=== PATIENT | male | born 1940 | race Caucasian/White ===

== ENCOUNTER 2017-08-03 17:13 | Inpatient (IN) | payer OTHER, MEDICAID ==
[2017-08-03] MEDS ORDERED: PERMETHRIN 5% 60 GM CREAM TP ONE (17:22)
--- NOTE | 2017-08-03 18:00 | EDPHY ---
H & P - Medical/Surgical History Hx Asthma: No Hx Chronic Respiratory Disease: No Hx Diabetes: No Hx Cardiac Disease: Yes Hx Renal Disease: No Hx Cirrhosis: No Hx Alcoholism: No Hx HIV/AIDS: No Hx Splenectomy or Spleen Trauma: No Other PMH: AAA surgical repair, HTN, right SHoulder surgery, BOWEL RESCECTION, CHOLEcystectomy - Social History Smoking Status: Former smoker HPI/ROS: Chief complaint: Unable to care for self History of present illness: This is a 77-year-old male brought to the emergency department by EMS reporting he is unable to care for himself. He lives independently on the 3rd floor of a building. He has a history of chronic back pain. He states it has been worsening. He is unable to get around the apartment. Apparently he was able to get a note put on his front door stating he needed help and a bystander saw it and called 911. EMS reports his apartment is incredibly filthy with urine and feces throughout the apartment. Patient appears to be covered in bugs, on closer inspection they appear to be Thrips. He has seen his primary care doctor for this infection. Apparently he is on ivermectin. Review of systems: A 10 point review of systems was obtained and other than described above was negative (Ehsan Cortez) - Physical Exam Exam: General Appearance: Alert, appears uncomfortable. Eyes: Pupils equal and round no pallor or injection. ENT, Mouth: Mucous membranes moist. Respiratory: There are no retractions, lungs are clear to auscultation. Cardiovascular: Regular rate and rhythm. Gastrointestinal: Abdomen is soft and non tender, no masses, bowel sounds normal. Neurological: Alert and oriented x4. Strength and sensation intact and symmetric Skin: Multiple bites and crusting. Patient has a large number of bugs on him. Musculoskeletal: Neck is supple non tender. Extremities are symmetrical, full range of motion. Psychiatric: Patient is oriented X 3, there is no agitation. (Ehsan Cortez) Constitutional: Initial Vital Signs Heart Rate 86 08/03/17 18:00 Respiratory Rate 18 08/03/17 18:00 Blood Pressure 158/96 H 08/03/17 18:00 O2 Sat (%) 93 08/03/17 18:00 O2 Delivery Mode Room Air Allergies/Adverse Reactions: aspirin Allergy (Mild, Verified 07/17/15 17:16) Beta-Blockers (Beta-Adrenergic Bloc Allergy (Verified 07/13/15 17:30) Sulfa (Sulfonamide Antibiotics) Allergy (Verified 06/06/15 12:53) Home Medications: Medication Instructions Recorded Atorvastatin Calcium [Lipitor 20 20 mg PO DAILY 08/03/17 mg (*)] Diltiazem HCl [Diltiazem 24Hr ER] 180 mg PO DAILY 08/03/17 Ethacrynic Acid [Edecrin 25 MG (*)] 50 mg PO DAILY 08/03/17 Herbals/Supplements -Info Only 1 ea PO DAILY 08/03/17 Medical Decision Making - Diagnostics Imaging: I viewed and interpreted images myself - Diagnostics Imaging Results: Imaging Impressions Chest X-Ray 08/03/17 17:21 Impression: 1. Bibasilar interstitial opacities suggesting interstitial pulmonary edema. 2. Suspected small right pleural effusion. Lumbar Spine X-Ray 08/03/17 17:21 Impression: 1. Age-indeterminate, mild to moderate compression fracture at L4. 2. Moderate to severe anterior wedge deformity of L1, slightly increased since prior exam in 2013. ED Course/Re-evaluation: Patient is discussed with my secondary supervising physician Dr. Luis Daniel Mendenhall. Patient brought to the emergency department by EMS for back pain and inability to care for himself. Patient appears to be severely uncared for. He is covered in bugs. EMS reports severe filth in his apartment. He does not appear to be able to perform any ADLs. He will be admitted for pain management as well as case management. He is in agreement with plan. (Ehsan Cortez) Differential Diagnosis: Included but not limited to (Ehsan Cortez) - Data Points Laboratory Results: Laboratory Results 08/03/17 18:20 08/03/17 18:20 08/03/17 08/03/17 18:20 18:20 WBC 7.09 10^3/uL 10^3/uL (3.80-9.50) RBC 3.76 10^6/uL L 10^6/uL (4.40-6.38) Hgb 13.8 g/dL g/dL (13.7-17.5) Hct 39.8 % L % (40.0-51.0) MCV 105.9 fL H fL (81.5-99.8) MCH 36.7 pg H pg (27.9-34.1) MCHC 34.7 g/dL g/dL (32.4-36.7) RDW 13.0 % % (11.5-15.2) Plt Count 104 10^3/uL L 10^3/uL (150-400) MPV 9.5 fL fL (8.7-11.7) Neut % (Auto) 81.8 % H % (39.3-74.2) Lymph % (Auto) 8.3 % L % (15.0-45.0) Sherman % (Auto) 8.2 % % (4.5-13.0) Eos % (Auto) 0.3 % L % (0.6-7.6) Baso % (Auto) 0.6 % % (0.3-1.7) Nucleat RBC Rel Count 0.0 % % (0.0-0.2) Absolute Neuts (auto) 5.80 10^3/uL 10^3/uL (1.70-6.50) Absolute Lymphs (auto) 0.59 10^3/uL L 10^3/uL (1.00-3.00) Absolute Monos (auto) 0.58 10^3/uL 10^3/uL (0.30-0.80) Absolute Eos (auto) 0.02 10^3/uL L 10^3/uL (0.03-0.40) Absolute Basos (auto) 0.04 10^3/uL 10^3/uL (0.02-0.10) Absolute Nucleated RBC 0.00 10^3/uL 10^3/uL (0-0.01) Immature Gran % 0.8 % % (0.0-1.1) Immature Gran # 0.06 10^3/uL 10^3/uL (0.00-0.10) Sodium 138 mEq/L mEq/L (135-145) Potassium 4.5 mEq/L mEq/L (3.5-5.2) Chloride 102 mEq/L mEq/L (97-110) Carbon Dioxide 25 mEq/l mEq/l (22-31) Anion Gap 11 mEq/L mEq/L (8-16) BUN 13 mg/dL mg/dL (7-23) Creatinine 0.8 mg/dL mg/dL (0.7-1.3) Estimated GFR > 60 Glucose 183 mg/dL H mg/dL (70-100) Calcium 8.8 mg/dL mg/dL (8.5-10.4) Medications Given: Discontinued Medications Hydromorphone HCl (Dilaudid) 1 mg IVP EDNOW ONE Stop: 08/03/17 18:26 Last Admin: 08/03/17 18:27 Dose: 1 mg Permethrin (Elimite 5%) 1 christiana TP EDNOW ONE Stop: 08/03/17 17:23 Last Admin: 08/03/17 20:00 Dose: 1 unit Departure - Departure Disposition: [facility] Inpatient Acute Clinical Impression: Failure to thrive in adult Back pain Qualifiers: Back pain location: low back pain Chronicity: unspecified Back pain laterality : midline Sciatica presence: without sciatica Qualified Code(s): M54.5 - Low back pain Condition: Fair
[2017-08-03] MEDS ORDERED: HYDROmorphONE/DILAUDID 1 MG/ML INJ IVP ONE (18:25)
[2017-08-03 18:42] LABS: PLATELET COUNT 104 10^3/uL (150-400)
[2017-08-03] MEDS ORDERED: ONDANSETRON 4 MG/2 ML VIAL IVP PRN (18:46)
[2017-08-03] MEDS ORDERED: ONDANSETRON DISINTEGRATING 4 MG TAB PO PRN (18:46)
[2017-08-03] MEDS: ACETAMINOPHEN 325 MG TAB PO PRN (22:45)
[2017-08-03] MEDS ORDERED: LORazepam 2 MG/ML INJ IVP PRN (23:09)
[2017-08-03] MEDS: diphenhydrAMINE 25 MG CAP PO PRN (23:57)
[2017-08-03] MEDS: KETOROLAC 15 MG/1 ML SDV IVP SCH (23:58)
--- NOTE | 2017-08-04 00:26 | GHP ---
[f rep st] HISTORY AND PHYSICAL DATE OF ADMISSION: 08/03/2017 CHIEF COMPLAINT: Failure to thrive, lumbar back pain, and insect bites. HISTORY OF PRESENT ILLNESS: A 77-year-old male with history of aortic stenosis status post AVR, hypertension, CHF who came to the ER stating he cannot care for himself. He lives independently on the 3rd floor of a building and has had increased lumbar back pain. He has a history of pain, but says that it has gotten worse. He denies any radiation down the legs. No acute weakness or lower extremity numbness. No bladder or bowel incontinence. He was able to get a note to put on his front door stating he needed help and a bystander called 911. EMS reports his apartment is incredibly filthy with urine and feces throughout the apartment and he was covered in bugs. On closer examination, they appear to be thrips. Says he has fallen in the last few weeks and complaining of right wrist and arm pain. He has chronic right shoulder pain and this has not changed. Drinks up to a pint of vodka at night to sleep. Last drink was yesterday. No fevers, chills, or sweats. No nausea, vomiting, diarrhea. He said he found a used couch and brought it into his apartment about a month ago and then acutely developed bites that are extremely itchy all over his body. He is on ivermectin from his PCP. He has been out of his diltiazem and ethacrynic acid for the last couple days, but denies shortness of breath, lower extremity edema, PND. REVIEW OF SYSTEMS: I completed a 10-point Review of Systems, negative except as noted in the HPI. PAST SURGICAL HISTORY: 1. Aortic stenosis status post AVR at [facility] by Dr. Gale. 2. CHF. 3. Hypertension. 4. PVD. 5. History of AAA repair. 6. Alcohol abuse and withdrawal. PAST SURGICAL HISTORY: Humeral fracture status post repair May 2016, AAA repair necessitating a bowel resection, shoulder surgery, cholecystectomy. FAMILY HISTORY: Father with seizures. SOCIAL HISTORY: Lives alone in a 3rd floor apartment. Has not been able to care for himself for the last few weeks. Next, drinks at least a pint of vodka a day, last yesterday. Denies tobacco. Smokes weed daily. HOME MEDICATIONS: Diltiazem 180 mg daily, ethacrynic acid 50 daily, herbal supplement, Lipitor 20. ALLERGIES: Aspirin, beta blockers, and sulfas. PHYSICAL EXAMINATION: VITAL SIGNS: Temperature 36.8, blood pressure 182/97, heart rate is 99, respirations 20, 89% on room air. GENERAL: Cachectic male lying in bed uncomfortable, scratching all over his body. HEENT: PERRLA. Dry mucous membranes. CV: Regular rate and rhythm. No murmurs, gallops, or rubs. No lower extremity edema. LUNGS: Clear. GI: Soft, nontender, nondistended. Positive bowel sounds. : No Elizabeth. MUSCULOSKELETAL: Lumbar paraspinal tenderness. No appreciable pain over the spine itself. Negative straight leg test. Limited range of motion secondary to chronic pain in shoulder. Wrist and forearm are swollen and very tender with palpation, limited range of motion. NEURO: 2 through 12 intact. Normal sensation to touch. Positive tongue fasciculations and tremors. SKIN: Multiple excoriations all over chest and extremities with some scabbed lesions. No evidence of cellulitis or purulence. PSYCH: Alert and oriented x3. LABS: WBC 7, hemoglobin 13, hematocrit 39, MCV is 105, platelets 104. Sodium 138, potassium 4.5, chloride 102, carbon dioxide 25, creatinine 0.8, glucose is 183. Lumbar spine x-ray: Age indeterminate [id number] compression fracture L4. Moderate severe anterior wedge deformity L1 slightly increased from 2014. Chest x-ray is personally reviewed by me. Bibasilar distal opacities suggesting pulmonary edema. Small right effusion. ASSESSMENT AND PLAN: 1. Failure to thrive: Secondary to [id number] lumbar pain. There are no flag signs. There is age indeterminate lumbar fracture. Further evaluate with CT since has hardware and cannot obtain MRI. 2. Alcohol withdrawal. actively withdrawing now. Normally he drinks at least a pint of vodka a day. Start CIWA. Multivitamin, thiamine and folate. 3. Cachexia. Will check a pre-albumin. 4. Right wrist and arm pain. Check x-rays of wrist and forearm. 5. History of aortic stenosis status post aortic valve repair. 6. Peripheral vascular disease, statin. 7. Accelerated hypertension. Suspect this is due to alcohol withdrawal. We will treat this and also resume his home diltiazem. 8. History of heart failure. Continue diltiazem and ethacrynic acid. He has an allergy to beta blockers. 9. Bug infestation: per ER, was covered with thrips. Was treated for scabies with permethrin. Contact precautions. 10. Thrombocytopenia: Secondary to chronic alcohol use. 11. Macrocytosis. Again, secondary to alcohol. 12. Diet: Regular. 13. Deep venous thrombosis prophylaxis: Lovenox. DISPOSITION: Patient warrants inpatient admission given failure to thrive, [id number] back pain. Warrants further imaging, PT, OT, and possible placement. /[id number]/MODL MTDD
[2017-08-04] MEDS: KETOROLAC 15 MG/1 ML SDV IVP SCH ×4 (06:39→22:21)
[2017-08-04] MEDS ORDERED: Herbals/Supplements -Info Only PO SCH (09:00)
[2017-08-04] MEDS: PANTOPRAZOLE SODIUM 40 MG VIAL IVP SCH (09:01)
[2017-08-04] MEDS: DILTIAZEM CD 180 MG CAP PO SCH (09:01)
[2017-08-04] MEDS: ETHACRYNIC ACID 25 MG TAB PO SCH (09:01)
[2017-08-04] MEDS: FOLIC ACID 1 MG TAB PO SCH (09:02)
[2017-08-04] MEDS: ATORVASTATIN CALCIUM 20 MG TAB PO SCH (09:04)
[2017-08-04] MEDS: MULTIVITAMINS 1 EACH TAB PO SCH (09:04)
[2017-08-04] MEDS: oxyCODONE IR 5 MG TAB PO PRN (09:04)
[2017-08-04] MEDS: ENOXAPARIN 40 MG/0.4 ML SYR SC SCH (09:04)
[2017-08-04] MEDS: THIAMINE HCL 500 MG in NS 250 ML IV SCH (10:47)
[2017-08-04] MEDS: LORazepam 1 MG TAB PO PRN ×2 (10:56→22:23)
--- NOTE | 2017-08-04 14:07 | PDMN ---
Medical Necessity Medical necessity: est los>2mn for FTT, r/t acute on chronic lumbar pain, lumbar fx of indeterminate age, etoh withdrawal, R wrist and arm pain w/hx recent falls, bug infestation,and accelerated htn; admit for imaging, CIWA, BP management; and contact precautions; comorbid cachexia, chronic etoh abuse, PVD , CHF, and hx AVR; reported by EMS that apt. w/urine and feces throughout, and pt covered in bugs; per order and H&P 08/03/17
--- NOTE | 2017-08-04 16:33 | ASMTCMCOM ---
CM Note CM Note Notes: Patient admitted for failure to thrive and complaints of back pain. Per history and physical, ED report, and my conversation with patient, it appears that his living conditions are suboptimal. He lives independently in subsidized housing. He admits to "not cleaning as frequently as I should," but doesn't endorse reports that his apartment is covered in feces and urine. Regarding his drinking, he says that he does not drink socially, only drinks in his own home to help him sleep. He says it's very controlled drinking and without it, he's an insomniac. Finally, regarding bugs, he has been told he has thrips and lice. Per my research, thrips do not feed on humans although they can cause irritating bites. Patient said he brought in a sofa from the street, so I suspect this is how the thrips entered his house. I encouraged patient to speak with his manager property or contact at [facility] to have this investigated while he is not in the home, but he is concerned about people knowing. He's also concerned that his LP collection will need to be moved and he is the only one who knows how to arrange his records (not alphabetically). Patient may not have a great grasp on reality. Regarding his physical symptoms, he will be seen by Neurosurg and Ortho. PT/OT pending. Patient seemed amenable to rehab, although he is quite worried about treating the bug infestation in his house. I think this will be very hard to achieve without someone physically going into his home and determining exactly what the infestation is. Patient sees Dr Lyn at [facility] as well as Dr Mireles at [facility]. CM will follow for discharge planning. Date Signed: 08/04/2017 04:32 PM Electronically Signed By:Asia Yepez RN
--- NOTE | 2017-08-04 17:54 | GCON ---
[f rep st] CONSULTATION NEUROSURGICAL CONSULTATION CHIEF COMPLAINT: Back pain. HISTORY OF PRESENT ILLNESS: The patient is a 77-year-old male who has a history of aortic stenosis status post aortic valve replacement, hypertension, and congestive heart failure. He presented to the emergency department 2017, with back pain and failure to thrive. He was admitted by the hospitalist and a CT scan of the lumbar spine was obtained. This showed an L1 and possibly acute L4 compression fracture. Neurosurgical consultation was requested. He currently complains of ongoing axial left-sided low back pain. He denies any lower extremity radicular pain. He denies any weakness, paresthesias, ataxia, or bowel or bladder problems. He has apparently fallen several times over the last several weeks while at home. PAST MEDICAL HISTORY: 1. Aortic stenosis, status post aortic valve replacement. 2. Congestive heart failure. 3. Hypertension. 4. Peripheral vascular disease. 5. History of AAA repair. 6. History of alcohol abuse. PAST SURGICAL HISTORY: 1. Repair of humerus fracture in 2016. 2. AAA repair. 3. Shoulder surgery. 4. Cholecystectomy. MEDICATIONS: Prior to admission are Lipitor, diltiazem, coreg and herbal supplements. ALLERGIES: Aspirin, beta blockers. FAMILY HISTORY: Patient has a father with a history of seizures. SOCIAL HISTORY: Patient lives alone in a 3rd floor apartment. He does not have children. Does drink alcohol as well as use marijuana. REVIEW OF SYSTEMS: Negative. PHYSICAL EXAM: GENERAL: Patient is a 77-year-old male lying in bed, in no apparent distress. HEAD, EYES, EARS, NOSE, AND THROAT: Negative for drainage. EXTREMITIES: [place], warm and dry. NEUROLOGICAL: The patient is awake, alert , oriented x4. Pupils equal, round, reactive to light. Extraocular motions are intact. There is no evidence of facial droop. Tongue and uvula are midline. Spinal accessory muscles are intact. His motor strength is 5/5 in his arms and legs. Sensation is grossly intact to light touch. Deep tendon reflexes are 1/4. DIAGNOSTIC STUDIES: A CT scan of the lumbar spine without contrast demonstrates preservation of the sagittal alignment. There are postoperative changes from previous laminectomy. There appears to be an acute L4 compression fracture with approximately 30% to 40% loss of height. There appears to be a chronic L1 compression fracture with approximately 60% to 70% loss of height. There is no evidence of retropulsion or severe canal compromise. IMPRESSION: This is a 77-year-old male with acute low back pain that is likely related to his acute L4 compression fracture. He is neurologically stable. PLAN: All the above discussed in detail with the patient. This patient was seen and examined by Dr. Roy. At this point in time, will obtain an MRI of the lumbar spine without contrast to better evaluate this L4 compression fracture, to determine if it is acute. If this L4 fracture is acute, we will have him fit with a Wright brace from [employer]. In the meantime, we will have him work with Physical therapy and Occupational therapy. Please call with any neurological changes. /[id number]/MODL MTDD
--- NOTE | 2017-08-04 21:47 | HOSPPROG ---
Hospitalist Progress Note Assessment/Plan: Assessment: 77 yo M p/w acute L4 fracture and acute radial/ulnar fractures s/p mechanical fall Plan: # Radial / ulnar fractures. Acute, non-displaced distal metaphyseal and styloid chip fractures, 2/2 fall - d/w Dr. Velez, he recommends wrist brace and outpt f/u in 1 week to see if swelling dissipates and repeat x-rays show no significant displacement - PRN pain mgmt and icing, brace ordered # L4 compression fracture. Acute, new problem, further w/u indicated. Present on CT w/ 30-40% height loss - appreciate NSGY consult - getting MRI to confirm - davian brace by [employer] - PRN pain mgmt w/ bowel regimen # Back pain. Likely 2/2 L4 comp fxr, but possibly complicated by old L1 comp fxr w/ 60-70% height loss + suspected acute L. psoas muscle and iliacus hematomas, likely 2/2 traumatic fall - heat pad, pain mgmt - limiting safe mobility, PT/OT/CM, likely will require SNF # Louse infestation. Isolated from patient, ivermectin ordered to sterilize, cont on isolation precautions # Acute alcohol withdraw. Evidenced by tremulousness, elevated BP, last drink 48hrs ago - cont on CIWA # Chronic diastolic CHF. No e/o acute exacerbation, CXR w/ mild pulm edema ( personally interpreted), patient will only use his ethycrinic acid, cont to monitor weights # HTN. Chronic, cont home Rx Diet. Regular PPx. High risk, lovenox 40 Code. Full, he elects his [facility] to be his PCP at [facility]. ADD uncertain, ongoing w/u and evals per above, likely SNF. Subjective: ongoing pain in back, eating well Objective: Vital Signs Temp Pulse Resp BP Pulse Ox 36.7 C 80 16 164/91 H 91 L 08/04/17 19:48 08/04/17 19:48 08/04/17 19:48 08/04/17 19:48 08/04/17 19:48 Laboratory Results 08/04/17 08:31 08/04/17 08:31 08/03/17 08/04/17 08/05/17 05:59 05:59 05:59 Intake Total 730 1600 Output Total 450 1520 Balance 280 80 - Physical Exam Constitutional: no apparent distress, not in pain, chronically ill appearing, uncomfortable Cardiovascular: regular rate and rhythym, no murmur, rub, or gallop, edema ( trace bilat LE edema) Respiratory: reduced air movement (bilat bases), No expiratory wheeze, No inspiratory crackles, No bronchial breath sounds, No respiratory distress Gastrointestinal: normoactive bowel sounds, soft, non-tender abdomen, no palpable masses, No distension Skin: other (scattered bug bites across chest) Neurologic: AAOx3, sensation intact bilaterally, No asterixes (mild tremulousness) Psychiatric: interacting appropriately, not anxious, not encephalopathic, thought process linear ICD10 Worksheet Patient Problems: Problems Problem Status Onset Back pain Acute Failure to thrive in adult Acute Alcoholic intoxication Acute Alcoholism Acute Chronic Disease Mgmt/Transitional Care Acute Congestive heart failure Acute Dyspnea on exertion Acute Fracture dislocation of joint of right upper extremity Acute Humeral fracture Acute Hyponatremia Acute Nocturnal cough Acute Urinary retention Acute
[2017-08-04] MEDS: diphenhydrAMINE 25 MG CAP PO PRN (22:22)
[2017-08-04] MEDS: MELATONIN 3 MG TAB PO SCH (22:23)
[2017-08-05] MEDS: LORazepam 1 MG TAB PO PRN ×2 (01:52→22:32)
[2017-08-05] MEDS: diphenhydrAMINE 25 MG CAP PO PRN ×4 (03:09→22:32)
[2017-08-05] MEDS: KETOROLAC 15 MG/1 ML SDV IVP SCH ×3 (05:46→17:18)
[2017-08-05] MEDS: oxyCODONE IR 5 MG TAB PO PRN ×2 (05:57→22:32)
--- NOTE | 2017-08-05 06:59 | NEUSURGPN ---
Assessment/Plan: Assessment: 77 yo male that has a hx of CHF, failure to thrive that has had frequent falls with likely new compression fracture of L4 and old compression fracture of L1 Plan: -likely new L4 and old L1 compression fractures: pt with isolated lower back pain. No T or C spine pain -pt denies any UE or LE complaints or numbness, tingling, pain or weakness. He has isolated lower back pain -PT/OT ordered -MRI of the L spine ordered and pending due to the fact we don't know as of yet what type of heart valve he has -if L4 is acute we will order a Shon brace -warning signs reviewed -call with any questions or concerns -take medications as directed Subjective: Awake and alert. NAD. Eating/drinking and voiding. No f/c/n/v/d. Objective: AAO x 3, PERRLA/EOMI no droop CN 2-12 grossly intact +lt touch 5/5 BUE/BLE = Neuro Check Frequency: per routine Urinary Catheter in Place: No - Physician Discussed Patient with : Manuel[facility] Neurosurgery Physical Exam - Vitals, I&O, Labs I and O 08/04/17 08/05/17 08/06/17 05:59 05:59 05:59 Intake Total 730 2300 Output Total 450 1896 Balance 280 404 Weight 62.5 kg Intake: Oral (ml) 730 2300 Output: Urine (ml) 450 1896 Incontinence 1 Urinal 100 1895 Other: Number of Voids 1 Urinal 1 3 Vital Signs Temp Pulse Resp BP Pulse Ox 36.4 C 71 16 135/69 H 97 08/05/17 03:09 08/05/17 03:09 08/05/17 03:09 08/05/17 03:09 08/05/17 03:09 Laboratory Results 08/04/17 08:31 08/04/17 08:31 ICD10 Worksheet Patient Problems: Problems Problem Status Onset Back pain Acute Failure to thrive in adult Acute Alcoholic intoxication Acute Alcoholism Acute Chronic Disease Mgmt/Transitional Care Acute Congestive heart failure Acute Dyspnea on exertion Acute Fracture dislocation of joint of right upper extremity Acute Humeral fracture Acute Hyponatremia Acute Nocturnal cough Acute Urinary retention Acute
[2017-08-05] MEDS: THIAMINE HCL 500 MG in NS 250 ML IV SCH (09:29)
[2017-08-05] MEDS: PANTOPRAZOLE SODIUM 40 MG VIAL IVP SCH (09:30)
[2017-08-05] MEDS: ATORVASTATIN CALCIUM 20 MG TAB PO SCH (09:33)
[2017-08-05] MEDS: ETHACRYNIC ACID 25 MG TAB PO SCH (09:33)
[2017-08-05] MEDS: DILTIAZEM CD 180 MG CAP PO SCH (09:33)
[2017-08-05] MEDS: FOLIC ACID 1 MG TAB PO SCH (09:34)
[2017-08-05] MEDS: ENOXAPARIN 40 MG/0.4 ML SYR SC SCH (09:34)
[2017-08-05] MEDS: MULTIVITAMINS 1 EACH TAB PO SCH (09:34)
[2017-08-05] MEDS ORDERED: PERMETHRIN 1% 59 ML LOTION (Hair rinse) TP ONE (11:59)
--- NOTE | 2017-08-05 15:36 | ASMTCMCOM ---
CM Note CM Note Notes: Cm met w/ pt for dispo planning. Pt is refusing SNF at this time despite the concerns of staff and diagnose of failure to thrive. Pt reports that his biggest concern is the infestation. Pt reports that he has treated his apartment w/ chemicals but afraid to treat his apartment w/ heat. Pt reports that he is afraid that the heat will damage some of his property. Pt reports that he is afraid of notifying his landlord in fears of getting evicted. CM to follow. Plan: TBD; pending therapies Date Signed: 08/05/2017 03:35 PM Electronically Signed By:LEANNE Berger
--- NOTE | 2017-08-05 15:57 | HOSPPROG ---
Hospitalist Progress Note Assessment/Plan: Assessment: 77 yo M p/w acute L4 fracture and acute radial/ulnar fractures s/p mechanical fall Plan: # Radial / ulnar fractures. Acute, non-displaced distal metaphyseal and styloid chip fractures, 2/2 fall - d/w Dr. Velez, he recommends wrist brace and outpt f/u in 1 week to see if swelling dissipates and repeat x-rays show no significant displacement - PRN pain mgmt and icing, brace ordered # L4 compression fracture. Acute, new problem, further w/u indicated. Present on CT w/ 30-40% height loss - appreciate NSGY consult - getting MRI to confirm - davian brace by Hospitality Aide - PRN pain mgmt w/ bowel regimen # Back pain. Likely 2/2 L4 comp fxr, but possibly complicated by old L1 comp fxr w/ 60-70% height loss + suspected acute L. psoas muscle and iliacus hematomas, likely 2/2 traumatic fall - seems to have resolved but he has not ambulated yet # Louse infestation. Isolated from patient, ivermectin ordered to sterilize, cont on isolation precautions # Acute alcohol withdraw. Evidenced by tremulousness, elevated BP, last drink 48hrs ago - cont on CIWA * Looks pretty good today # Chronic diastolic CHF. No e/o acute exacerbation, CXR w/ mild pulm edema ( personally interpreted), patient will only use his ethycrinic acid, cont to monitor weights # HTN. Chronic, cont home Rx Diet. Regular PPx. High risk, lovenox 40 Code. Full, he elects his MDPOA to be his PCP at [facility]. ADD uncertain, ongoing w/u and evals per above, likely SNF. Subjective: Back pain is completely resolved Objective: Vital Signs Temp Pulse Resp BP Pulse Ox 35.9 C L 85 19 119/76 96 08/05/17 11:55 08/05/17 11:55 08/05/17 11:55 08/05/17 11:55 08/05/17 11:55 Laboratory Results 08/04/17 08:31 08/04/17 08:31 08/04/17 08/05/17 08/06/17 05:59 05:59 05:59 Intake Total 730 2300 Output Total 450 1896 125 Balance 280 404 -125 - Physical Exam Constitutional: no apparent distress, appears nourished, not in pain Eyes: anicteric sclera, EOMI Ears, Nose, Mouth, Throat: moist mucous membranes, hearing normal Cardiovascular: regular rate and rhythym Respiratory: no respiratory distress Skin: warm Neurologic: AAOx3 Psychiatric: interacting appropriately, not anxious, not encephalopathic, thought process linear ICD10 Worksheet Patient Problems: Problems Problem Status Onset Back pain Acute Failure to thrive in adult Acute Alcoholic intoxication Acute Alcoholism Acute Chronic Disease Mgmt/Transitional Care Acute Congestive heart failure Acute Dyspnea on exertion Acute Fracture dislocation of joint of right upper extremity Acute Humeral fracture Acute Hyponatremia Acute Nocturnal cough Acute Urinary retention Acute
[2017-08-05] MEDS: MELATONIN 3 MG TAB PO SCH (22:33)
[2017-08-06] MEDS: KETOROLAC 15 MG/1 ML SDV IVP SCH ×4 (00:31→17:59)
--- NOTE | 2017-08-06 06:51 | NEUSURGPN ---
Assessment/Plan: Assessment: 77 yo male that has a hx of CHF, failure to thrive that has had frequent falls with likely new compression fracture of L4 and old compression fracture of L1 Plan: -likely new L4 and old L1 compression fractures: pt with isolated lower back pain. No T or C spine pain -pt denies any UE or LE complaints or numbness, tingling, pain or weakness. He has isolated lower back pain -PT/OT ordered -MRI of the L spine shows mild acute L4 compression fracture -LSO brace form [employer] -upright xrays in brace and then if ok Pt can follow up with Dr Olea team in 4 weeks with xrays -pt understands and agrees -warning signs reviewed -call with any questions or concerns -take medications as directed Subjective: Awake and alert. NAD. Eating/drinking and voiding. No f/c/n/v/d. Objective: AAO x 3, PERRLA/EOMI no droop CN 2-12 grossly intact +lt touch 5/5 BUE/BLE = Neuro Check Frequency: per routine Urinary Catheter in Place: No - Physician Discussed Patient with : Manuela Neurosurgery Physical Exam - Vitals, I&O, Labs I and O 08/05/17 08/06/17 08/07/17 05:59 05:59 05:59 Intake Total 2300 820 Output Total 1896 625 Balance 404 195 Intake: Oral (ml) 2300 820 Output: Urine (ml) 1896 625 Incontinence 1 125 Urinal 1895 500 Other: Number of Voids Incontinence 1 Urinal 3 2 Vital Signs Temp Pulse Resp BP Pulse Ox 36.1 C 99 16 140/74 H 99 08/06/17 04:00 08/06/17 04:00 08/06/17 04:00 08/06/17 04:00 08/06/17 04:00 Laboratory Results 08/04/17 08:31 08/04/17 08:31 ICD10 Worksheet Patient Problems: Problems Problem Status Onset Back pain Acute Failure to thrive in adult Acute Alcoholic intoxication Acute Alcoholism Acute Chronic Disease Mgmt/Transitional Care Acute Congestive heart failure Acute Dyspnea on exertion Acute Fracture dislocation of joint of right upper extremity Acute Humeral fracture Acute Hyponatremia Acute Nocturnal cough Acute Urinary retention Acute
[2017-08-06] MEDS: DILTIAZEM CD 180 MG CAP PO SCH (09:36)
[2017-08-06] MEDS: ATORVASTATIN CALCIUM 20 MG TAB PO SCH (09:37)
[2017-08-06] MEDS: ETHACRYNIC ACID 25 MG TAB PO SCH (09:37)
[2017-08-06] MEDS: MULTIVITAMINS 1 EACH TAB PO SCH (09:38)
[2017-08-06] MEDS: oxyCODONE IR 5 MG TAB PO PRN (09:38)
[2017-08-06] MEDS: PANTOPRAZOLE SODIUM 40 MG VIAL IVP SCH (09:38)
[2017-08-06] MEDS: FOLIC ACID 1 MG TAB PO SCH (09:38)
[2017-08-06] MEDS: THIAMINE HCL 500 MG in NS 250 ML IV SCH (09:41)
[2017-08-06] MEDS: ENOXAPARIN 40 MG/0.4 ML SYR SC SCH (11:15)
[2017-08-06] MEDS ORDERED: PNEUMOC 13-VAL CONJ-DIP CRM/PF 0.5 ML SYR IM ONE (16:23)
[2017-08-06] MEDS: MELATONIN 3 MG TAB PO SCH (20:51)
[2017-08-06] MEDS: diphenhydrAMINE 25 MG CAP PO PRN (20:51)
--- NOTE | 2017-08-06 21:05 | HOSPPROG ---
Hospitalist Progress Note Assessment/Plan: Assessment: 77 yo M p/w acute L4 fracture and acute radial/ulnar fractures s/p mechanical fall Plan: # Radial / ulnar fractures. Acute, non-displaced distal metaphyseal and styloid chip fractures, 2/2 fall - d/w Dr. Velez, he recommends wrist brace and outpt f/u in 1 week to see if swelling dissipates and repeat x-rays show no significant displacement - PRN pain mgmt and icing, brace ordered # L4 compression fracture. Acute, new problem, further w/u indicated. Present on CT w/ 30-40% height loss - appreciate NSGY consult - davian brace by Automatic Corn Grinder Operator - PRN pain mgmt w/ bowel regimen # Back pain. Likely 2/2 L4 comp fxr, but possibly complicated by old L1 comp fxr w/ 60-70% height loss + suspected acute L. psoas muscle and iliacus hematomas, likely 2/2 traumatic fall - seems to have resolved but he has not ambulated yet # Louse infestation. Isolated from patient, ivermectin ordered to sterilize, cont on isolation precautions # Acute alcohol withdraw. Evidenced by tremulousness, elevated BP, last drink 48hrs ago - cont on CIWA * Looks pretty good today # Chronic diastolic CHF. No e/o acute exacerbation, CXR w/ mild pulm edema ( personally interpreted), patient will only use his ethycrinic acid, cont to monitor weights # HTN. Chronic, cont home Rx Diet. Regular PPx. High risk, lovenox 40 Code. Full, he elects his MDPOA to be his PCP at [facility]. ADD uncertain, ongoing w/u and evals per above, likely SNF. Subjective: pain conts to improve Objective: Vital Signs Temp Pulse Resp BP Pulse Ox 36.5 C 88 17 175/92 H 94 08/06/17 19:54 08/06/17 19:54 08/06/17 15:45 08/06/17 19:54 08/06/17 19:54 Laboratory Results 08/04/17 08:31 08/04/17 08:31 08/05/17 08/06/17 08/07/17 05:59 05:59 05:59 Intake Total 2300 820 1300 Output Total 1896 625 990 Balance 404 195 310 - Physical Exam Constitutional: no apparent distress, appears nourished, not in pain Cardiovascular: regular rate and rhythym Respiratory: no respiratory distress Neurologic: AAOx3 Psychiatric: interacting appropriately, not anxious, not encephalopathic, thought process linear ICD10 Worksheet Patient Problems: Problems Problem Status Onset Back pain Acute Failure to thrive in adult Acute Alcoholic intoxication Acute Alcoholism Acute Chronic Disease Mgmt/Transitional Care Acute Congestive heart failure Acute Dyspnea on exertion Acute Fracture dislocation of joint of right upper extremity Acute Humeral fracture Acute Hyponatremia Acute Nocturnal cough Acute Urinary retention Acute
[2017-08-07] MEDS: KETOROLAC 15 MG/1 ML SDV IVP SCH ×5 (00:11→23:44)
[2017-08-07] MEDS: LORazepam 1 MG TAB PO PRN ×2 (02:37→22:39)
--- NOTE | 2017-08-07 08:07 | NEUSURGPN ---
Assessment/Plan: Assessment: 77 yo male that has a hx of CHF, failure to thrive that has had frequent falls with likely new compression fracture of L4 and old compression fracture of L1 Plan: -likely new L4 and old L1 compression fractures: pt with isolated lower back pain. No T or C spine pain -pt denies any UE or LE complaints or numbness, tingling, pain or weakness. He has isolated lower back pain -PT/OT ordered -MRI of the L spine shows mild acute L4 compression fracture -LSO brace form [employer] -upright xrays in brace are stable - if he is tolerating the brace well he can follow up with Dr Roy in 4 weeks with xrays -If not tolerating brace can consider IR kyphoplasty -D/w Dr Roy -call with any questions or concerns Subjective: Pt resting at edge of bed states his back is killing him, not wearing brace Objective: Awake and alert NAD VSS MAEx4 Motor 5/5 BLE +LT Urinary Catheter in Place: No - Physician Discussed Patient with Dr.: Roy Neurosurgery Physical Exam - Vitals, I&O, Labs I and O 08/06/17 08/07/17 08/08/17 05:59 05:59 05:59 Intake Total 820 1640 Output Total 625 1090 Balance 195 550 Intake: Oral (ml) 820 1640 Output: Urine (ml) 625 1090 Incontinence 125 600 Urinal 500 490 Other: Number of Voids Incontinence 1 1 Urinal 2 Vital Signs Temp Pulse Resp BP Pulse Ox 36.7 C 89 19 151/78 H 91 L 08/07/17 07:33 08/07/17 07:33 08/07/17 07:33 08/07/17 07:33 08/07/17 07:33 Laboratory Results 08/04/17 08:31 08/04/17 08:31 ICD10 Worksheet Patient Problems: Problems Problem Status Onset Back pain Acute Failure to thrive in adult Acute Alcoholic intoxication Acute Alcoholism Acute Chronic Disease Mgmt/Transitional Care Acute Congestive heart failure Acute Dyspnea on exertion Acute Fracture dislocation of joint of right upper extremity Acute Humeral fracture Acute Hyponatremia Acute Nocturnal cough Acute Urinary retention Acute
[2017-08-07] MEDS: ETHACRYNIC ACID 25 MG TAB PO SCH (08:34)
[2017-08-07] MEDS: ATORVASTATIN CALCIUM 20 MG TAB PO SCH (08:34)
[2017-08-07] MEDS: oxyCODONE IR 5 MG TAB PO PRN (08:34)
[2017-08-07] MEDS: PANTOPRAZOLE SODIUM 40 MG VIAL IVP SCH (08:35)
[2017-08-07] MEDS: DILTIAZEM CD 180 MG CAP PO SCH (08:35)
[2017-08-07] MEDS: FOLIC ACID 1 MG TAB PO SCH (08:35)
[2017-08-07] MEDS: THIAMINE HCL 100 MG TAB PO SCH (08:35)
[2017-08-07] MEDS: MULTIVITAMINS 1 EACH TAB PO SCH (08:35)
[2017-08-07] MEDS: ENOXAPARIN 40 MG/0.4 ML SYR SC SCH (13:58)
--- NOTE | 2017-08-07 14:22 | HOSPPROG ---
Hospitalist Progress Note Assessment/Plan: Assessment: 77 yo M p/w acute L4 fracture and acute radial/ulnar fractures s/p mechanical fall Plan: # Radial / ulnar fractures. Acute, non-displaced distal metaphyseal and styloid chip fractures, 2/2 fall - d/w Dr. Velez, he recommends wrist brace and outpt f/u in 1 week to see if swelling dissipates and repeat x-rays show no significant displacement - PRN pain mgmt and icing, brace ordered # L4 compression fracture. Acute, new problem, further w/u indicated. Present on CT w/ 30-40% height loss - appreciate NSGY consult - davian brace by Supplier Diversity Director - PRN pain mgmt w/ bowel regimen # Back pain. Likely 2/2 L4 comp fxr, but possibly complicated by old L1 comp fxr w/ 60-70% height loss + suspected acute L. psoas muscle and iliacus hematomas, likely 2/2 traumatic fall - seems to have resolved but he has not ambulated yet # Louse infestation. Isolated from patient, ivermectin ordered to sterilize, cont on isolation precautions # Acute alcohol withdraw. Evidenced by tremulousness, elevated BP, last drink 48hrs ago - cont on CIWA * Looks pretty good today # Chronic diastolic CHF. No e/o acute exacerbation, CXR w/ mild pulm edema ( personally interpreted), patient will only use his ethycrinic acid, cont to monitor weights # HTN. Chronic, cont home Rx Diet. Regular PPx. High risk, lovenox 40 Code. Full, he elects his MDPOA to be his PCP at [facility]. needing snf Subjective: back pain is better Objective: Vital Signs Temp Pulse Resp BP Pulse Ox 36.6 C 75 18 158/94 H 95 08/07/17 12:42 08/07/17 12:42 08/07/17 12:42 08/07/17 12:42 08/07/17 12:42 Laboratory Results 08/04/17 08:31 08/04/17 08:31 08/06/17 08/07/17 08/08/17 05:59 05:59 05:59 Intake Total 820 1640 Output Total 625 1090 Balance 195 550 - Physical Exam Constitutional: no apparent distress, appears nourished, not in pain Eyes: anicteric sclera, EOMI Ears, Nose, Mouth, Throat: moist mucous membranes, hearing normal Cardiovascular: regular rate and rhythym Respiratory: no respiratory distress Gastrointestinal: normoactive bowel sounds, soft, non-tender abdomen, no palpable masses Skin: warm Neurologic: AAOx3 Psychiatric: interacting appropriately, not anxious, not encephalopathic, thought process linear ICD10 Worksheet Patient Problems: Problems Problem Status Onset Back pain Acute Failure to thrive in adult Acute Alcoholic intoxication Acute Alcoholism Acute Chronic Disease Mgmt/Transitional Care Acute Congestive heart failure Acute Dyspnea on exertion Acute Fracture dislocation of joint of right upper extremity Acute Humeral fracture Acute Hyponatremia Acute Nocturnal cough Acute Urinary retention Acute
--- NOTE | 2017-08-07 16:52 | ASMTCMCOM ---
CM Note CM Note Notes: After reviewing pt's chart today, a decision was made to make an APS report to Randal WALKER ([phone]) due to the condition of pt's apartment and the fact that he has an infestation of thrips. Officer Omi Min took the call. He will followup at pt's DC. If pt refuses SNF and DC's hime, he asked that they be called 30 mins after DC so that pt will be present when they arrive. If pt decides on SNF, CM will notify them. pt's DC plan remains unclear. CM to follow. Date Signed: 08/07/2017 04:51 PM Electronically Signed By:Indira Olivera LCSW
[2017-08-07] MEDS: MELATONIN 3 MG TAB PO SCH (22:39)
[2017-08-07] MEDS: diphenhydrAMINE 25 MG CAP PO PRN (22:39)
[2017-08-08] MEDS: KETOROLAC 15 MG/1 ML SDV IVP SCH ×3 (05:39→17:29)
[2017-08-08] MEDS: ENOXAPARIN 40 MG/0.4 ML SYR SC SCH (08:14)
[2017-08-08] MEDS: THIAMINE HCL 100 MG TAB PO SCH (08:14)
[2017-08-08] MEDS: ETHACRYNIC ACID 25 MG TAB PO SCH (08:14)
[2017-08-08] MEDS: FOLIC ACID 1 MG TAB PO SCH (08:14)
[2017-08-08] MEDS: MULTIVITAMINS 1 EACH TAB PO SCH (08:14)
[2017-08-08] MEDS: PANTOPRAZOLE SODIUM 40 MG VIAL IVP SCH (08:14)
[2017-08-08] MEDS: DILTIAZEM CD 180 MG CAP PO SCH (08:14)
[2017-08-08] MEDS: ATORVASTATIN CALCIUM 20 MG TAB PO SCH (08:14)
--- NOTE | 2017-08-08 10:41 | ASMTCMCOM ---
CM Note CM Note Notes: Met with pt this morning and he is agreeing to go to SNF. He chose [facility] where he has been before. Faxed referral and [facility]. can accept. DC unknown. Date Signed: 08/08/2017 10:41 AM Electronically Signed By:Indira Olivera LCSW
--- NOTE | 2017-08-08 18:59 | HOSPPROG ---
Hospitalist Progress Note Assessment/Plan: DIAGNOSES: # mechanical fall with multiple fracture injuries, ongoing severe gait instability multifactorial # Radial / ulnar fractures. Acute, non-displaced distal metaphyseal and styloid chip fractures, 2/2 fall - d/w Dr. Velez, he recommends wrist brace and outpt f/u in 1 week to see if swelling dissipates and repeat x-rays show no significant displacement - PRN pain mgmt and icing, brace ordered # L4 compression fracture. 30-40% height loss by CT - appreciate NSGY consult - davian brace by [employer]; can consider injection interventions if pain persists - PRN pain mgmt w/ bowel regimen # Back pain. Likely 2/2 L4 comp fxr, but possibly complicated by old L1 comp fxr w/ 60-70% height loss + suspected acute L. psoas muscle and iliacus hematomas, likely 2/2 traumatic fall - seems to be improving, but still with pain -beginning to ambulate a little bit better # Louse infestation. Isolated from patient, ivermectin ordered to sterilize -status post treatment off isolation now # Acute alcohol withdraw. Evidenced by tremulousness, elevated BP, last drink 48hrs ago -on CIWA -appears to have resolved completely this time but will continue to follow # Chronic diastolic CHF. No e/o acute exacerbation, CXR w/ mild pulm edema ( personally interpreted), patient will only use his ethycrinic acid, cont to monitor weights # HTN. Chronic, cont home Rx PLANS: -continue PT OT with increased activity as able -continue titration of pain management -continue thiamine replacement -continue nutritional supplements -will repeat serum chemistry tomorrow for ensuring stability -anticipate possibly discharging August 09 or ; has apparently been accepted by [facility] SUBJECTIVE: Still with moderate amount of pain that is actually starting to get up and move around a little bit better on his feet with a walker Eating better OBJECTIVE Vitals reviewed: Stable without fever Change Control Coordinator, my review: Exam: alert oriented skin warm dry color ok resps not labored lungs clear BSs heart regular abd soft nondistended nontender, bowel sounds present limbs warm, no edema iv site ok Objective: Vital Signs Temp Pulse Resp BP Pulse Ox 36.9 C 80 18 146/91 H 92 08/08/17 16:17 08/08/17 16:17 08/08/17 16:17 08/08/17 16:17 08/08/17 16:17 Laboratory Results 08/04/17 08:31 08/04/17 08:31 08/07/17 08/08/17 08/09/17 06:59 06:59 06:59 Intake Total 0009 182 3281 Output Total 1090 1708 150 Balance 550 -828 1050 ICD10 Worksheet Patient Problems: Problems Problem Status Onset Back pain Acute Failure to thrive in adult Acute Alcoholic intoxication Acute Alcoholism Acute Chronic Disease Mgmt/Transitional Care Acute Congestive heart failure Acute Dyspnea on exertion Acute Fracture dislocation of joint of right upper extremity Acute Humeral fracture Acute Hyponatremia Acute Nocturnal cough Acute Urinary retention Acute
[2017-08-08] MEDS: diphenhydrAMINE 25 MG CAP PO PRN (20:41)
[2017-08-08] MEDS: ACETAMINOPHEN 325 MG TAB PO PRN (20:41)
[2017-08-08] MEDS: MELATONIN 3 MG TAB PO SCH (20:41)
[2017-08-09] MEDS: KETOROLAC 15 MG/1 ML SDV IVP SCH (00:33)
[2017-08-09] MEDS: PANTOPRAZOLE SODIUM 40 MG VIAL IVP SCH (08:04)
[2017-08-09] MEDS: ENOXAPARIN 40 MG/0.4 ML SYR SC SCH (08:04)
[2017-08-09] MEDS: ATORVASTATIN CALCIUM 20 MG TAB PO SCH (08:05)
[2017-08-09] MEDS: FOLIC ACID 1 MG TAB PO SCH (08:05)
[2017-08-09] MEDS: DILTIAZEM CD 180 MG CAP PO SCH (08:05)
[2017-08-09] MEDS: ETHACRYNIC ACID 25 MG TAB PO SCH (08:05)
[2017-08-09] MEDS: THIAMINE HCL 100 MG TAB PO SCH (08:05)
[2017-08-09] MEDS: MULTIVITAMINS 1 EACH TAB PO SCH (08:06)
[2017-08-09] MEDS: oxyCODONE IR 5 MG TAB PO PRN ×2 (12:53→22:45)
[2017-08-09] MEDS: ACETAMINOPHEN 325 MG TAB PO PRN ×2 (13:55→22:47)
[2017-08-09] MEDS ORDERED: IBUPROFEN 200 MG TAB PO PRN (15:54)
[2017-08-09] MEDS ORDERED: traMADol 50 MG TAB PO PRN (15:55)
--- NOTE | 2017-08-09 17:59 | HOSPPROG ---
Hospitalist Progress Note Assessment/Plan: DIAGNOSES: # mechanical fall with multiple fracture injuries, ongoing severe gait instability multifactorial # Radial / ulnar fractures. Acute, non-displaced distal metaphyseal and styloid chip fractures, 2/2 fall - d/w Dr. Velez, he recommends wrist brace and outpt f/u in 1 week to see if swelling dissipates and repeat x-rays show no significant displacement - PRN pain mgmt and icing, brace ordered # L4 compression fracture. 30-40% height loss by CT - appreciate NSGY consult - davian brace by [employer]; can consider injection interventions if pain persists - PRN pain mgmt w/ bowel regimen # Back pain. Likely 2/2 L4 comp fxr, but possibly complicated by old L1 comp fxr w/ 60-70% height loss + suspected acute L. psoas muscle and iliacus hematomas, likely 2/2 traumatic fall - seems to be improving, but still with pain -beginning to ambulate a little bit better # Louse infestation. Isolated from patient, ivermectin ordered to sterilize -status post treatment off isolation now # uncontrolled hypertension, will need more medication at this time; a diuretic would be a good choice as he does have some diastolic heart failure chronically # Acute alcohol withdraw. Evidenced by tremulousness, elevated BP, last drink 48hrs ago -on CIWA -appears to have resolved completely this time but will continue to follow # Chronic diastolic CHF. No e/o acute exacerbation, CXR w/ mild pulm edema ( personally interpreted), patient will only use his ethycrinic acid, cont to monitor weights # HTN. Chronic, cont home Rx PLANS: -add Maxzide for blood pressure control -add tramadol and ibuprofen for his back pain -continue PT OT with increased activity as able -continue titration of pain management -continue thiamine replacement -continue nutritional supplements -will repeat serum chemistry tomorrow for ensuring stability -anticipate possibly discharging August 10, nursing facility unable to take him today; has apparently been accepted by [facility] SUBJECTIVE: Still with moderate amount of pain that is actually starting to get up and move around a little bit better on his feet with a walker, had a harder pain issue last night trying to sleep, no radicular symptoms No febrile symptoms Eating better OBJECTIVE Vitals reviewed: Having intermittent significant systolic hypertension, otherwise stable without fever Exam: alert oriented looks comfortable in relaxed, no confusion or disorientation or tremor, no anxiety skin warm dry color ok resps not labored lungs clear BSs heart regular abd soft nondistended nontender, bowel sounds present limbs warm, no edema iv site ok Objective: Vital Signs Temp Pulse Resp BP Pulse Ox 36.5 C 75 18 175/94 H 98 08/09/17 15:59 08/09/17 15:59 08/09/17 15:59 08/09/17 15:59 08/09/17 15:59 Laboratory Results 08/04/17 08:31 08/09/17 04:14 08/08/17 08/09/17 08/10/17 06:59 06:59 06:59 Intake Total 880 1600 Output Total 1708 450 Balance -828 1150 ICD10 Worksheet Patient Problems: Problems Problem Status Onset Back pain Acute Failure to thrive in adult Acute Alcoholic intoxication Acute Alcoholism Acute Chronic Disease Mgmt/Transitional Care Acute Congestive heart failure Acute Dyspnea on exertion Acute Fracture dislocation of joint of right upper extremity Acute Humeral fracture Acute Hyponatremia Acute Nocturnal cough Acute Urinary retention Acute
[2017-08-09] MEDS: MELATONIN 3 MG TAB PO SCH (19:59)
[2017-08-10] MEDS: oxyCODONE IR 5 MG TAB PO PRN ×2 (05:55→10:01)
[2017-08-10 07:23] VITALS: O2SAT 99
[2017-08-10] MEDS: THIAMINE HCL 100 MG TAB PO SCH (09:59)
[2017-08-10] MEDS: ETHACRYNIC ACID 25 MG TAB PO SCH (09:59)
[2017-08-10] MEDS: MULTIVITAMINS 1 EACH TAB PO SCH (10:00)
[2017-08-10] MEDS: DILTIAZEM CD 180 MG CAP PO SCH (10:00)
[2017-08-10] MEDS: FOLIC ACID 1 MG TAB PO SCH (10:01)
[2017-08-10] MEDS: ATORVASTATIN CALCIUM 20 MG TAB PO SCH (10:01)
[2017-08-10] MEDS: ACETAMINOPHEN 325 MG TAB PO PRN (10:04)
[2017-08-10] MEDS: PANTOPRAZOLE SODIUM 40 MG VIAL IVP SCH (10:06)
[2017-08-10] MEDS: ENOXAPARIN 40 MG/0.4 ML SYR SC SCH (12:59)
--- NOTE | 2017-08-10 14:15 | PDIAF ---
- Diagnosis Diagnosis: gait instability, lumbar compr fx, rad/uln fx, alcohol abuse, chronic afib Code Status: Full Code - Medication Management Discharge Medications: Medications to Continue on Transfer Atorvastatin Calcium [Lipitor 20 mg (*)] 20 mg PO DAILY 08/03/17 [Last Taken Unknown] Diltiazem HCl [Diltiazem 24Hr ER] 180 mg PO DAILY 08/03/17 [Last Taken Unknown] Ethacrynic Acid [Edecrin 25 MG (*)] 50 mg PO DAILY 08/03/17 [Last Taken 08/02/17 ] Acetaminophen [Tylenol 325mg (*)] 650 mg PO Q4HRS PRN tab 08/10/17 [Last Taken Unknown] Ibuprofen [Motrin (*)] 400 mg PO Q6HRS PRN tab 08/10/17 [Last Taken Unknown] Lidocaine 5% [Lidoderm 5% Patch (*)] 1 ea TD DAILY #1 patch 08/10/17 [Last Taken Unknown] Melatonin [Melatonin 3 MG (*)] 3 mg PO HS tab 08/10/17 [Last Taken Unknown] Multivitamins [Multivitamin (*)] 1 each PO DAILY tab 08/10/17 [Last Taken Unknown] Thiamine HCl [Vitamin B-1] 100 mg PO DAILY tab 08/10/17 [Last Taken Unknown] traMADol [Ultram 50 mg (*)] 50 mg PO Q6HRS PRN tab 08/10/17 [Last Taken Unknown ] Discharge Medications: Refer to the Discharge Home Medication list for PRN reason. - Orders Services needed: Registered Nurse, Certified Batting Machine Operator, Master Funds Transfer Clerk , Physical Therapy, Occupational Therapy Isolation Type: None Diet Recommendation: no restrictions on diet Diet Texture: Regular Texture Diet - Follow Up Care Current Providers and Referrals: Patient,NotPresent [Unknown] - As per Instructions David Roy MD [Medical Doctor] - (follow up with Dr Roy in 4 weeks with lumbar spine xrays) Shant Velez MD [Medical Doctor] -
[2017-08-10 15:06] VITALS: BP 162/89; PULSE 74; RESP 16; TEMP 97.6
--- NOTE | 2017-08-10 15:38 | ASMTLACE ---
NANCY Length of stay for Answers: 7-13 days current admission Acuity / Level of Answers: Yes Care: Did the patient have an inpatient admission? Comorbidities - select Answers: Congestive heart failure all that apply Opioid dependence / Chronic pain # of Emergency department Answers: 1-2 visits in the last 6 months Social determinants Answers: History of substance abuse (ETOH, street drugs, prescription drugs, etc.) Lack of community resources and/or lack of social support (no pcp, lives alone, transportation, sona d) Score: 22 Date Signed: 08/10/2017 03:37 PM Electronically Signed By:JESSIE Mcdermott
--- NOTE | 2017-08-10 15:53 | ASDISCHSUM ---
Discharge Information Plan Status:SNF Medically Cleared to Leave:08/09/2017 Discharge Date:08/09/2017 CM D/C Disposition:Prison Facility ADT D/C Disposition:Prison Facility Projected Discharge Date:08/10/2017 11:00 AM Transportation at D/C:Wheelchair Van Discharge Delay Reason: Follow-Up Date:08/10/2017 11:00 AM Discharge Slot: Final Diagnosis: Placement Information Referral Type:*Usp/SNF Referral ID:[id number] Provider Name:[facility] Address 1:[address] Address 2: City:[place] Selection Factors: State:[place] Patient Contact Information Contact Name:MELBA Relationship: Address: Home Phone: Work Phone: City: [facility] Phone: [facility] Code: Email: Financial Information Financial Class:Medicare Primary Plan Desc:MEDICARE INPATIENT Primary Plan Number:[id number] Secondary Plan Desc:MED[place] Secondary Plan Number:[id number] Assessment Information LACE LACE Length of stay for Answers: 7-13 days current admission Acuity / Level of Answers: Yes Care: Did the patient have an inpatient admission? Comorbidities - select Answers: Congestive heart failure all that apply Opioid dependence / Chronic pain # of Emergency department Answers: 1-2 visits in the last 6 months Social determinants Answers: History of substance abuse (ETOH, street drugs, prescription drugs, etc.) Lack of community resources and/or lack of social support (no pcp, lives alone, transportation, sona d) Score: 22 Date Signed: 08/10/2017 03:37 PM Electronically Signed By:JESSIE Mcdermott [facility] CM Progress Note CM Note CM Note Notes: Patient admitted for failure to thrive and complaints of back pain. Per history and physical, ED report, and my conversation with patient, it appears that his living conditions are suboptimal. He lives independently in subsidized housing. He admits to "not cleaning as frequently as I should," but doesn't endorse reports that his apartment is covered in feces and urine. Regarding his drinking, he says that he does not drink socially, only drinks in his own home to help him sleep. He says it's very controlled drinking and without it, he's an insomniac. Finally, regarding bugs, he has been told he has thrips and lice. Per my research, thrips do not feed on humans although they can cause irritating bites. Patient said he brought in a sofa from the street, so I suspect this is how the thrips entered his house. I encouraged patient to speak with his sporting goods sales manager or contact at [facility] to have this investigated while he is not in the home, but he is concerned about people knowing. He's also concerned that his LP collection will need to be moved and he is the only one who knows how to arrange his records (not alphabetically). Patient may not have a great grasp on reality. Regarding his physical symptoms, he will be seen by Neurosurg and Ortho. PT/OT pending. Patient seemed amenable to rehab, although he is quite worried about treating the bug infestation in his house. I think this will be very hard to achieve without someone physically going into his home and determining exactly what the infestation is. Patient sees Dr Lyn at [facility] as well as Dr Mireles at [facility]. CM will follow for discharge planning. Date Signed: 08/04/2017 04:32 PM Electronically Signed By:Asia Yepez RN [facility] Progress Note CM Note CM Note Notes: Cm met w/ pt for dispo planning. Pt is refusing SNF at this time despite the concerns of staff and diagnose of failure to thrive. Pt reports that his biggest concern is the infestation. Pt reports that he has treated his apartment w/ chemicals but afraid to treat his apartment w/ heat. Pt reports that he is afraid that the heat will damage some of his property. Pt reports that he is afraid of notifying his landlord in fears of getting evicted. CM to follow. Plan: TBD; pending therapies Date Signed: 08/05/2017 03:35 PM Electronically Signed By:LEANNE Berger [facility] Progress Note CM Note CM Note Notes: After reviewing pt's chart today, a decision was made to make an APS report to Randal WALKER ([phone]) due to the condition of pt's apartment and the fact that he has an infestation of thrips. Officer Omi Min took the call. He will followup at pt's DC. If pt refuses SNF and DC's hime, he asked that they be called 30 mins after DC so that pt will be present when they arrive. If pt decides on SNF, CM will notify them. pt's DC plan remains unclear. CM to follow. Date Signed: 08/07/2017 04:51 PM Electronically Signed By:Indira Olivera LCSW [facility] Progress Note CM Note CM Note Notes: Met with pt this morning and he is agreeing to go to SNF. He chose [facility] where he has been before. Faxed referral and [facility]. can accept. DC unknown. Date Signed: 08/08/2017 10:41 AM Electronically Signed By:Indira Olivera LCSW Case Management Discharge Plan Note Case Management Discharge Discharge Order Complete? Answers: Yes Patient to Obtain Answers: Other Notes: [facility] Medications Transportation Arranged Answers: Other Notes: Randal Valle w/c Transport will Pick (Date 08/10/2017 04:00 PM & Time) Faxed Final Orders Answers: Yes Discharge Comments Notes: Pt discharging to [facility] today. D/C orders/meds sent via [employer]. Transport arranged by . Pt's RN informing pt he cannot bring any of his belongings to to due concerns about his recent lice. A friend will be contacted to pick them up and keep them for pt. Date Signed: 08/10/2017 03:33 PM Electronically Signed By:JESSIE Mcdermott Intervention Information Intervention Type:*IM-Signed Date of Service:08/10/2017 02:32 PM Patient Type:Inpatient Staff Member:Candy Cheng Hours: Discipline: Severity: Comment:
--- NOTE | 2017-08-10 16:20 | PDDCSUM ---
Discharge Summary Discharge Summary: DISCHARGE DIAGNOSES: # mechanical fall with multiple fracture injuries, ongoing severe gait instability multifactorial # Radial / ulnar fractures. Acute, non-displaced distal metaphyseal and styloid chip fractures, 2/2 fall # L4 compression fracture. 30-40% height loss by CT # Back pain. # Louse infestation. Isolated from patient, status post treatment with ivermectin # uncontrolled hypertension, # Acute alcohol withdraw # Chronic diastolic CHF. No e/o acute exacerbation # HTN. Chronic, cont home Rx CONSULTANTS: Dr. Suzanne Velez PROCEDURES: CT scan of lumbar spine HOSPITAL COURSE SUMMARY: This elderly gentleman who lives by himself in a 3rd floor apartment came to the ER by ambulance as he was not really able to walk or get up the stairs to his apartment. He had had a fall and was identified in evaluating his back and arm pain that he had a compression fracture at L4 as well as radial ulnar fracture. Neither of these required any surgical correction and he was casted for his arm fracture. There is no evidence of any neurologic compromise or vascular compromise from either injury. Patient had severe gait instability was unable to ambulate. He does have a history of drinking alcohol significantly and had the beginnings of some mild alcohol withdrawal as he arrived here. Patient was admitted to the hospital where he was treated with fall risk precautions, physical therapy, IV fluids, supportive and nutritional care. He required a few small doses of benzodiazepine for his withdrawal but this resolved quickly and is completely resolved at this time. He has had no more falls here. His ambulation is actually improved significantly here but he is still having quite a bit of pain and finds standing walking still quite difficult. He has not felt safe for transfer directly back to home in his apartment independently. The patient did have hypertension while here and he does have chronic hypertension at home. He takes diltiazem at home. Despite use of the diltiazem here he had persistently elevated systolic pressures. As there is a history of diastolic congestive heart failure Maxzide was at this time as it antihypertensive in-home need ongoing follow-up for that. Incidentally the patient did complain of some itching and was found to have body lice here. He was treated with ivermectin here and responded well with that and his no visible infestation at this time PENDING TEST RESULTS: None MEDICATION CHANGES: Addition of [facility] side for blood pressure FOLLOW-UP PLAN: He is transferred at this time to [facility] will be cared for by the nursing and physician staff there He will have appointments to visit with Dr. Darrell Moser and Dr. Velez for his skeletal injuries Greater than 35 minutes bedside and care coordination time today
--- NOTE | 2017-08-11 10:12 | ASMTCMCOM ---
CM Note CM Note Notes: Call from Danielle Dickinson with [facility] APS, requesting information on patient's hospitalization. I gave her a summary of his stay here. Per CM notes from 08/10, he was discharged to [facility]. Danielle will f/u with patient there. APS has opened a case. Date Signed: 08/11/2017 10:11 AM Electronically Signed By:Asia Yepez RN
== END 2017-08-10 16:05 | DRG 552 ==
LOC: EDUNIT# → F1N 20:44
PROVIDERS: ADMIT Internal Medicine; ATTEND Internal Medicine
PROC: HZ2ZZZZ Detoxification Services for Substance Abuse Treatment (ICD-10-PCS; principal; 2017-08-03)
DX: S32.040A Wedge compression fracture of fourth lumbar vertebra, initial encounter for closed fracture (principal); S52.614A Nondisplaced fracture of right ulna styloid process, initial encounter for closed fracture; S59.201A Unspecified physeal fracture of lower end of radius, right arm, initial encounter for closed fracture; W01.0XXA Fall on same level from slipping, tripping and stumbling without subsequent striking against object, initial encounter; Y92.039 Unspecified place in apartment as the place of occurrence of the external cause; Y99.8 Other external cause status; I11.0 Hypertensive heart disease with heart failure; I50.22 Chronic systolic (congestive) heart failure; B85.1 Pediculosis due to Pediculus humanus corporis; F10.230 Alcohol dependence with withdrawal, uncomplicated; D69.59 Other secondary thrombocytopenia; K11.8 Other diseases of salivary glands; Z95.4 Presence of other heart-valve replacement; Z23 Encounter for immunization
CPT/HCPCS: 84134-90; 96374; 97116-GP; 97161-GP; 97166-GO; 97530-GP; 97535-GO; G0009; G8978-GP-CK; G8979-GP-CJ; G8987-GO-CJ; G8988-GO-CI; J1170; J1650; J1885; J2060; J3411

== ENCOUNTER 2017-08-13 07:32 | Emergency (ER) | payer OTHER, MEDICAID ==
--- NOTE | 2017-08-13 07:39 | EDPHY ---
H & P Time Seen by Provider: 08/13/17 07:35 HPI/ROS: CHIEF COMPLAINT: Atraumatic left hip pain HISTORY OF PRESENT ILLNESS: The patient is brought to the emergency department by paramedics with atraumatic left hip pain. The patient recently was hospitalized at [facility] with failure to thrive, alcohol intoxication, multiple nonsurgical fractures from a mechanical fall and scabies. The patient was discharged to [facility] 2 days ago. The patient was brought to the emergency department today by paramedics after he awoke this morning complaining of left hip pain. The patient reports that he has been recovering uneventfully at [facility]. He reports that he was moving in bed this morning when he developed acute left hip pain. He denies any history of a direct fall or recent traumatic injury. The patient denies any acute numbness or weakness. The patient denies any complaints of acute headache, neck pain or acute back pain. He does endorse symptoms of chronic pain from his prior fractures. He denies any fever, cough or congestion. He reports his pain is moderate in nature. REVIEW OF SYSTEMS: A comprehensive 10 point review of systems is otherwise negative aside from elements mentioned in the history of present illness. Source: Patient Exam Limitations: No limitations - Medical/Surgical History Hx Asthma: No Hx Chronic Respiratory Disease: No Hx Diabetes: No Hx Cardiac Disease: Yes Hx Renal Disease: No Hx Cirrhosis: No Hx Alcoholism: No Hx HIV/AIDS: No Hx Splenectomy or Spleen Trauma: No Other PMH: AAA surgical repair, HTN, right SHoulder surgery, BOWEL RESCECTION, CHOLEcystectomy, rheumatic fever - Social History Smoking Status: Former smoker - Physical Exam Exam: General Appearance: Elderly male, no acute distress Eyes: Pupils equal and round no pallor or injection ENT, Mouth: Mucous membranes moist Respiratory: There are no retractions, lungs are clear to auscultation Cardiovascular: Regular rate and rhythm Gastrointestinal: Abdomen is soft and nontender, no masses, bowel sounds normal Neurological: Alert and oriented x4, 5/5 strength all 4 extremities Skin: Some areas of hyperkeratosis otherwise no evidence of acute ecchymoses or traumatic injury Musculoskeletal: Tenderness to palpation in the lower lumbar spine Extremities: Tenderness to palpation over the left greater trochanter, painful range of motion left hip, no obvious shortening of the left lower extremity appreciated on exam. Remainder of extremity examination is unremarkable Constitutional: Initial Vital Signs Temperature (C) 36.7 C 08/13/17 07:35 Heart Rate 74 08/13/17 07:35 Respiratory Rate 16 08/13/17 07:35 Blood Pressure 140/70 H 08/13/17 07:35 O2 Sat (%) 88 L 08/13/17 07:35 O2 Delivery Mode Room Air Allergies/Adverse Reactions: aspirin Allergy (Mild, Verified 08/13/17 07:44) Beta-Blockers (Beta-Adrenergic Bloc Allergy (Verified 08/13/17 07:44) Sulfa (Sulfonamide Antibiotics) Allergy (Verified 08/13/17 07:44) Home Medications: Medication Instructions Recorded Atorvastatin Calcium [Lipitor 20 20 mg PO DAILY 08/03/17 mg (*)] Diltiazem HCl [Diltiazem 24Hr ER] 180 mg PO DAILY 08/03/17 Ethacrynic Acid [Edecrin 25 MG (*)] 50 mg PO DAILY 08/03/17 Acetaminophen [Tylenol 325mg (*)] 650 mg PO Q4HRS PRN tab 08/10/17 Ibuprofen [Motrin (*)] 400 mg PO Q6HRS PRN tab 08/10/17 Lidocaine 5% [Lidoderm 5% Patch 1 ea TD DAILY #1 patch 08/10/17 (*)] Melatonin [Melatonin 3 MG (*)] 3 mg PO HS tab 08/10/17 Multivitamins [Multivitamin (*)] 1 each PO DAILY tab 08/10/17 Thiamine HCl [Vitamin B-1] 100 mg PO DAILY tab 08/10/17 traMADol [Ultram 50 mg (*)] 50 mg PO Q6HRS PRN tab 08/10/17 Medical Decision Making - Diagnostics Imaging Results: Imaging Impressions Hip X-Ray 08/13/17 07:37 Impression: Left hip negative for acute abnormality. See above report for additional findings. ED Course/Re-evaluation: The patient presents to the ED after he developed an episode of acute left hip pain which was atraumatic in nature. The patient was noted to have some muscular tenderness upon arrival. He was taken for an x-ray which demonstrates no evidence of a fracture dislocation. I re-evaluated the patient at 8:40 a.m.. His pain has improved spontaneously. At this point time I favor muscle spasm is a likely etiology. I reviewed the patient's past workup from his recent hospitalization. At this point time I do not feel that additional imaging studies are blood testing are indicated. The patient will be discharged back to his intermediate. Differential Diagnosis: Differential diagnosis considered includes muscle spasm, hip fracture, dislocation Departure - Departure Disposition: Home, Routine, Self-Care Clinical Impression: Muscle spasm Condition: Good Instructions: Muscle Spasm (ED) Additional Instructions: 1. Please talk with your regular physician about the addition of medications for possible muscle spasms. 2. Return to the emergency department for severe pain or other concerns.
[2017-08-13 07:52] VITALS: RESP 16; TEMP 98.1
[2017-08-13 09:57] VITALS: BP 143/75; PULSE 79; O2SAT 95
--- NOTE | 2017-08-13 10:04 | ASMTCMCOM ---
CM Note CM Note Notes: Medicaid authorization received per KATHY for return to [facility]; [id number]. [facility] called for transport Date Signed: 08/13/2017 10:04 AM Electronically Signed By:Jessica Restrepo RN
== END 2017-08-13 09:45 | disposition home or self-care (01) ==
LOC: EDUNIT#
DX: M62.838 Other muscle spasm (principal); I10 Essential (primary) hypertension; Z87.891 Personal history of nicotine dependence

== ENCOUNTER 2017-10-12 03:12 | Inpatient (IN) | payer OTHER, MEDICAID ==
[2017-10-12] MEDS ORDERED: NS 1,000 ML IV ONE (03:23)
--- NOTE | 2017-10-12 03:30 | EDPHY ---
H & P Time Seen by Provider: 10/12/17 03:26 HPI/ROS: HPI CHIEF COMPLAINT: Generalized weakness, back pain, unable to care for himself HISTORY OF PRESENT ILLNESS: This patient is 77-year-old male, presents emergency room by EMS after states he called to his door way was unable to open up his doors he did not have enough strength, he was screaming to alert his neighbor. Neighbor found him on the ground. Patient states that he crawled out of his bed however did not have enough strength to stand. He states that he had some ongoing low back pain. He is unable to stand. He denies recurrent fall but he does report to me that he drinks alcohol regularly. Rather large amount each night to go to sleep. EMS reports that he had deplorable conditions at home, the home was not level, strong smell of feces and urine, and empty liquor bottles throughout. They did find his bed to be flush with the ground. Past Medical History: Aortic stenosis, diastolic heart failure, gait instability uncontrolled hypertension, L4 compression fracture, CHF, daily alcohol use Past Surgical History: No recent surgery Social History: Lives alone apartment. Daily alcohol use. Drinks hard liquor. Family History: Noncontributory ROS REVIEW OF SYSTEMS: A comprehensive 10 point review of systems is otherwise negative aside from elements mentioned in the history of present illness. Exam Constitutional Deconditioned, foul urine smell, thin and frail, smells of etoh, triage nursing summary reviewed, vital signs reviewed, awake/alert. Eyes normal conjunctivae and sclera, EOMI, PERRLA. HENT normal inspection, atraumatic, dry mucus membranes, no epistaxis, neck supple/ no meningismus, no raccoon eyes. Respiratory clear to auscultation bilaterally, normal breath sounds, no respiratory distress, no wheezing. Cardiovascular rate normal, regular rhythm, no murmur, no edema, distal pulses normal. Gastrointestinal soft, non-tender, no rebound, no guarding, normal bowel sounds, no distension, no pulsatile mass. Genitourinary no CVA tenderness. Musculoskeletal I can't palpate any significant midline pain, no midline vertebral tenderness, full range of motion, no calf swelling, no tenderness of extremities, no meningismus, good pulses, neurovascularly intact. Skin pink, warm, & dry, no rash, skin atraumatic. Neurologic awake, alert and oriented x 3, AAOx3, moves all 4 extremities equally, motor intact, sensory intact, CN II-XII intact, normal cerebellar, normal vision, normal speech. Psychiatric normal mood/affect. Heme/Lymph/Immune no lymphadenopathy. Differential Diagnosis: Includes but is not limited to in a particular order dehydration, generalized weakness, failure to thrive, grave disability, alcoholism, daily alcohol use, compression fracture, recurrent falls Medical Decision Making: Plan for this patient will obtain blood work, gentle IV hydration, x-ray lumbar spine x-ray of the chest, re-evaluate. Low threshold to admit due to patient's current social situation living alone unable to care form self. Re-evaluation: X-ray reviewed cardiomegaly present. Pulmonary edema present. Bilateral pleural effusions worse on the right than left, he is in his left lower lung field. EKG interpretation by me on record in [facility] system. Impression time of EKG 4:43 a.m., sinus rhythm is 73 no acute ischemic change. CT angiogram negative for PE. Interstitial lung disease present Source: Patient, EMS - Medical/Surgical History Hx Asthma: No Hx Chronic Respiratory Disease: No Hx Diabetes: No Hx Cardiac Disease: Yes Hx Renal Disease: No Hx Cirrhosis: No Hx Alcoholism: No Hx HIV/AIDS: No Hx Splenectomy or Spleen Trauma: No Other PMH: AAA surgical repair, HTN, right SHoulder surgery, BOWEL RESCECTION, CHOLEcystectomy, rheumatic fever - Social History Smoking Status: Former smoker Constitutional: Initial Vital Signs Temperature (C) 36.9 C 10/12/17 03:54 Heart Rate 76 10/12/17 03:54 Respiratory Rate 20 10/12/17 03:54 Blood Pressure 183/113 H 10/12/17 03:54 O2 Sat (%) 92 10/12/17 03:54 O2 Delivery Mode Nasal Cannula O2 (L/minute) 2 Allergies/Adverse Reactions: aspirin Allergy (Mild, Verified 10/12/17 03:54) Beta-Blockers (Beta-Adrenergic Bloc Allergy (Verified 10/12/17 03:54) Sulfa (Sulfonamide Antibiotics) Allergy (Verified 10/12/17 03:54) Home Medications: Medication Instructions Recorded Atorvastatin Calcium [Lipitor 20 20 mg PO DAILY 08/03/17 mg (*)] Diltiazem HCl [Diltiazem 24Hr ER] 180 mg PO DAILY 08/03/17 Ethacrynic Acid [Edecrin 25 MG (*)] 50 mg PO DAILY 08/03/17 Melatonin [Melatonin 3 MG (*)] 3 mg PO HS tab 08/10/17 Multivitamins [Multivitamin (*)] 1 each PO DAILY tab 08/10/17 Thiamine HCl [Vitamin B-1] 100 mg PO DAILY tab 08/10/17 Calcium Carbonate [Oyster Shell 500 mg PO DAILY 10/12/17 Calcium 500 mg (*)] Medical Decision Making - Data Points Laboratory Results: Laboratory Results 10/12/17 04:05 10/12/17 04:05 Medications Given: Ciprofloxacin (Ciloxan Opht Drops) 2 drops EACHEYE Q4HRS JACKY Stop: 11/11/17 13:59 Last Admin: 10/13/17 02:43 Dose: Not Given Diltiazem HCl (Cardizem Er Q24hr) 180 mg PO DAILY JACKY Stop: 04/10/18 12:59 Last Admin: 10/12/17 13:49 Dose: 180 mg Folic Acid (Folic Acid) 1 mg PO DAILY JACKY Stop: 04/10/18 08:59 Last Admin: 10/12/17 05:24 Dose: 1 mg Sodium Chloride (Ns) 1,000 mls @ 100 mls/hr IV CONT JACKY Stop: 04/10/18 06:29 Last Admin: 10/12/17 23:22 Dose: 1,000 mls Lorazepam (Ativan Injection) 1 - 2 mg IVP Q1H PRN; Protocol PRN Reason: Alcohol Withdrawal w/IV access Stop: 04/10/18 13:23 Last Admin: 10/13/17 02:54 Dose: 2 mg Melatonin (Melatonin) 3 mg PO HS JACKY Stop: 04/10/18 20:59 Last Admin: 10/12/17 19:47 Dose: 3 mg Discontinued Medications Furosemide (Lasix Injection) 20 mg IVP ONCE ONE Stop: 10/12/17 12:52 Last Admin: 10/12/17 13:54 Dose: 20 mg Sodium Chloride (Ns) 1,000 mls @ 0 mls/hr IV EDNOW ONE; Wide Open PRN Reason: Protocol Stop: 10/12/17 03:24 Last Admin: 10/12/17 04:05 Dose: 200 mls Thiamine HCl 500 mg/ Sodium (Chloride) 105 mls @ 210 mls/hr IV ONCE ONE Stop: 10/12/17 05:19 Last Admin: 10/12/17 05:24 Dose: 105 mls Departure - Departure Disposition: [facility] Acute Clinical Impression: Generalized weakness, Dehydration, Hypoglycemia Alcohol intoxication Qualifiers: Complication of substance-induced condition: uncomplicated Qualified Code(s): F10.920 - Alcohol use, unspecified with intoxication, uncomplicated Condition: Fair
[2017-10-12 04:17] LABS: PLATELET COUNT 48 10^3/uL (150-400)
[2017-10-12 04:22] LABS: INR 0.99 (0.83-1.16); PROTIME(PATIENT) 13.3 SEC (12.0-15.0)
[2017-10-12 04:26] LABS: CREATINE KINASE 88 IU/L (0-224)
[2017-10-12] MEDS ORDERED: THIAMINE HCL 500 MG in NS 100 ML IV ONE (04:50)
[2017-10-12] MEDS ORDERED: FOLIC ACID 1 MG TAB ONE (05:18)
[2017-10-12] MEDS: FOLIC ACID 1 MG TAB PO SCH (05:24)
--- NOTE | 2017-10-12 06:23 | CPEKG ---
Heart Rate: 73 RR Interval: 822 P-R Interval: 148 QRSD Interval: 96 QT Interval: 432 QTC Interval: 476 P Capron: 34 QRS Capron: -11 T Wave Capron: -1 EKG Severity - BORDERLINE ECG - EKG Impression: SINUS RHYTHM EKG Impression: BORDERLINE PROLONGED QT INTERVAL Electronically Signed By: Bro Stewart 12-Oct-2017 07:18:38
[2017-10-12] MEDS ORDERED: ONDANSETRON 4 MG/2 ML VIAL IVP PRN (06:27)
[2017-10-12] MEDS ORDERED: IOPAMIDOL (ISOVUE 370) 100 ML BTL IV ONE (06:40)
[2017-10-12] MEDS: NS 1,000 ML IV SCH ×2 (08:00→23:22)
--- NOTE | 2017-10-12 08:33 | GHP ---
[f rep st] HISTORY AND PHYSICAL DATE OF ADMISSION: 10/12/2017 SOURCE: Patient provides history, is a fair historian. He keeps asking regarding something to drink but redirectable. Case discussed with ED provider and EMR reviewed including visit from July 2017. CHIEF COMPLAINT: Generalized weakness. HISTORY OF PRESENT ILLNESS: This is a 77-year-old gentleman with past medical history significant fo r alcohol dependence, diastolic CHF, history of aortic stenosis, status post AVR, recent hospital sta y for back pain due to L4 compression fracture, failure to thrive, generalized weakness, an d peripheral vascular disease who presents to the emergency department today with complaints of gener alized weakness. Apparently, patient was unable to ambulate. He tried to crawl to the front door, b ut was unable to open it secondary to being unable to sit up or stand up. He was yelling for help an d his neighbor called . EMS arrived to find the patient on the floor, disheveled, in his own fe tyler and the home was in quite a disarray and in poor shape. Patient is complaining of feeling thirst y. He denies any chest pain, palpitations, shortness of breath, cough, rhinorrhea, fevers, chills, n ausea, or vomiting. He is also denying any acute back pain at time of my interview, but he is distra cted by request for drinking and feeling dehydrated. In July, patient was brought into the hospital under similar conditions except he had complaints of back pain. He was also found to be quite cachectic with debility and was discharged to [facility] . I am not sure if patient was discharged or he left AMA. At this point will need to gather further information. REVIEW OF SYSTEMS: Negative, except as noted above per HPI. ALLERGIES: Aspirin, beta gloria, sulfa. HOME MEDICATIONS: As per EMR, tramadol, thiamine, multivitamin, melatonin, Lidoderm patch, ibuprofen , , diltiazem, atorvastatin, Tylenol p.r.n. See EMR for dosing. Med list is not yet recon ciled. PAST MEDICAL HISTORY: Significant for aortic stenosis,status post AVR, diastolic CHF, PVD, alcohol d ependence, benign essential hypertension with history of accelerated hypertension, L4 compr ession fracture in July 2017, gait instability, history of falls, generalized weakness, rheumatic fever, and underweight status. PAST SURGICAL HISTORY: Significant for AVR, AAA repair, shoulder, bowel resection, cholecystectomy. FAMILY HISTORY: Father with history of seizures. SOCIAL HISTORY: Patient lives alone in an apartment. He drinks alcohol daily, last listed as 1 pint of vodka daily minimum. Denies tobacco and uses marijuana. COR STATUS: Will be full at this time given that it is difficult to obtain any history, redirect the patient, as he is complaining of feeling thirsty. PHYSICAL EXAMINATION: VITAL SIGNS: Upon arrival to the emergency department, blood pressure 183/113 , heart rate 76, respiratory rate 20, O2 saturation 92% on room air, temperature 36.9. Current vital s available: Blood pressure 170/101, heart rate is 85, respiratory rate 20, O2 saturation 97% on 2 L by nasal cannula. GENERAL: No acute distress, cooperative, elderly, frail, thin, cachectic-appeari ng gentleman who is lying quietly in bed. He is quite restless, asking for something to drink repeat edly despite being prepared to go to CAT scan. He appears disheveled. He is malodorous and thin. H EAD: Normocephalic, atraumatic. EYES: Extraocular muscles grossly intact. Pupils equal, round dec reased reactivity to light bilaterally but symmetric. No scleral icterus or conjunctival injection. ENT: Mucous membranes appear quite dry. Poor dentition. No oropharyngeal erythema or exudates. N o nasal discharge. NECK: Supple. Trachea midline. CV: Regular rate and rhythm. Limited exam sec ondary to patient talking through the entirety of exam. RESPIRATORY: Grossly clear to auscultation. Diminished at the bases. No wheezes or rhonchi appreciated. Again limited exam with patient talki ng. ABDOMEN: Positive bowel sounds. Soft, nontender to palpation. No rebound, guarding, or masses appreciated. : No Elizabeth in place. Patient with adult pad in place that is dirty. No scrotal ed tammi. Normal external male genitalia. EXTREMITIES: Thin. No cyanosis, clubbing, or edema appreciat ed. MUSCULOSKELETAL: Generalized weakness. Patient is able to move all extremities. Strength 4/5 in upper and lower extremities bilaterally while lying in bed. NEURO: Grossly nonfocal. No facial drooping. Moves all extremities. Strength as above. The patient is awake, alert, and oriented to p erson, place, and time. PSYCH: Patient is quite restless. He is anxious, asking repeatedly for lopez ething to drink despite being advised he will get something after his CAT scan. Patient is slightly distracted, but redirectable. LABORATORY STUDIES: WBC 4.67, H and H 14.2 and 42.0, MCV of 97.4, platelet count is 48,000, no bands . PT 13.3, INR 0.99, PTT is 30.1. D-dimer is 9.14. Sodium 140, potassium 4.1, chloride 102, CO2 21 , anion gap 17, BUN is 15, creatinine 0.8, GFR greater than 60, glucose 58, calcium is 8.0, total kaelyn irubin is 1.2, conjugated 1.0, ALT is 49, AST is 103, alk phos 103. CK is 88. Troponin 0.03. BTNP is 553. Total protein 6.5, albumin 3.6. Alcohol level is 189. Chest x-ray: Image reviewed myself, report is still pending. Cardiomegaly. Intrathoracic mass pres ent. Patient is rotated on imaging. He has a right shoulder replacement. Some potential haziness a nd patchiness in the left lower lobe. Elevation of the right hemidiaphragm. No free air appreciated below the diaphragm. Lumbar spine: Image reviewed myself. Report is still pending. Persistent L4 compression fracture, L1, L4 similar to previous images. EKG reviewed myself showing normal sinus rhythm, heart rate in the 70s, borderline QTc. No acute ST elevations. There is T-wave inversions in lead III and flattening aVF . Compared to previous EKG, T -wave inversion appears to be new. ASSESSMENT AND PLAN: This is a 77-year-old gentleman with history of alcohol abuse, aortic stenosis, status post repair, diastolic congestive heart failure, and chronic back pain due to lumbar compress ion fractures, who presents to the emergency department today with complaints of generalized weakness . 1. Failure to thrive. Patient lives independently. He was previously discharged to [facility]. Cl early patient is not able to care for himself at this time. He continues to drink. PT, OT will be c onsulted as well as Case Management. Patient without any focal deficits. No concerns for acute cere brovascular accident at this time. Patient will also have a dietary consult. Will need to be evalua harry for consideration for long-term care. 2. Generalized weakness. Patient does have a slightly low glucose. He was given some juice in the emergency department. Will avoid any dextrose additives at this time pending patient receiving his t hiamine. Plan as above. 3. Underweight. Awaiting newly documented weight. Patient had previously had pre-albumin checked o n his last hospital stay, which was remarkably within normal range. Will need to follow up on his we ight at a later time when available. 4. Cardiovascular disease. Continue statin. 5. Accelerated hypertension. Is unclear if patient has been taking his home medications as recommen ded. Will plan to resume his diltiazem, make available some hydralazine. Patient currently asymptom atic without any chest pain or headache and suspect that his blood pressures normally run in this ran ge. 6. Thrombocytopenia, likely related to patient's continued alcohol dependence. Coags were unremarka ble, but the patient's D-dimer was slightly elevated, so he is going for a CT angio. 7. History of macrocytosis. MCV currently improved slightly. We will continue to monitor CBCs. 8. Fluid, electrolyte, nutrition. Patient will receive IV fluids without dextrose at this time. El ectrolytes will be monitored. Replace if needed but not currently required. Advance diet as tolerat ed. 9. Prophylaxis. SCDs. Holding anticoagulation secondary to thrombocytopenia. 10. COR status will be full at this time. Once patient has been able to have a meal and is not fixa harry on oral intake, will have to attempt another discussion with him regarding advance directives. DISPOSITION: Patient has been admitted to observation at this time pending further evaluation, the C AT scan and further discussion with multi disciplinary team. /[id number]/MODL
[2017-10-12] MEDS ORDERED: ENOXAPARIN 40 MG/0.4 ML SYR SC SCH (09:00)
--- NOTE | 2017-10-12 12:05 | WOCRNPDOC ---
WOCRN Advanced Assessment Note - Skin Integrity Problem, Advanced Assess Sacrum Pressure Injury Dressing Type: Mepilex Border (sacral dressing) Dressing Description: Soiled (urine) Integumentary Issue Intervention: Visualized Under Dressing Luana Wound Tissue: Blanching, Erythema Wound Bed Color: Purple, Red Site Measurement - Head-to-Toe Length X Width X Depth (cm): 1.7x0.3x0 Pressure Injury Stage: Deep Tissue Injury (DTI) Pressure Injury Present on Admit: Yes Skin Integrity Problem Comment: Patient with probable DTI to sacrum, small and intact. Wound may be a contusion as patient has other contusions, but will treat as DTI and monitor. Will initiate specialty bed, TAPS, and turn protocols. Will round next week. Please reconsult Wound Care if DTI opens. Kyra GOULD assisted/supervised.
[2017-10-12] MEDS ORDERED: FUROSEMIDE 20 MG/2 ML VIAL IVP ONE (12:51)
[2017-10-12] MEDS: DILTIAZEM CD 180 MG CAP PO SCH (13:49)
[2017-10-12] MEDS: LORazepam 2 MG/ML INJ IVP PRN ×3 (14:05→23:44)
--- NOTE | 2017-10-12 15:39 | HOSPPROG ---
Hospitalist Progress Note Assessment/Plan: Subjective Follow-up on weakness Patient brought into the hospital by EMS overnight after he was on the ground and calling for assistance. The patient states that he lost his long-time partner approximately 4 months ago. She apparently had of brain cancer. He was also recently here in the hospital. He did spend some time at [facility] but tells me today that he simply walked out of the air to return back to his apartment. He states he has significant difficulty with sleeping and drinks a tunneler of hard alcohol each evening to help go to bed. Objective Vital signs as detailed below Physical exam General-patient appears moderately tremulous. He is able to converse and provide a good history. He favors lying on his right side. Cardiac-regular. He does have a murmur consistent with aortic valve replacement. Lungs-Clear to auscultation normal respiratory effort. Abdomen-soft nontender nondistended. Eyes-patient has mild purulence around the eyes. no Elizabeth catheter in place Extremities-no significant pitting edema Skin-small area of ecchymoses left of the spine on his back otherwise no concerning skin rashes noted. Labs as detailed below Assessment and plan 1. Weakness-CPK level was checked during his initial evaluation and was within normal limits. This may just be overall deconditioning. He lives alone and has poor social support. He states he is an only child and has no siblings he. He states he was on 2 occasions but no children from these relationships. PT OT and speech therapy consult have been placed. Will need to work with case management as well in regards to either placement or returning back to his apartment with home nursing. #. Alcohol withdrawal-patient appears oriented but is tremulous on exam. I have instituted a CIWA scale for lorazepam dosing. 2. Thrombocytopenia-this is but level is at 48,000. I do not see active clinical bleeding on exam. Likely related to alcohol use. 3. L4 compression fracture-this is noted from prior imaging and does not appear to be causing any major pain complaints today. 4. Acute hypoxic respiratory failure-patient does not use supplemental oxygen at home but is eating some here in the hospital. No PE was noted on CT imaging. There was evidence of chest fibrosis. His chest x-ray suggests the possibility of interstitial edema. I will give a conservative dose of Lasix at 20 mg IV today. Wean oxygen as able. 5. Transaminitis-his pattern is consistent with alcohol abuse. Continue to trend. 6. Conjunctivitis-patient does have of purulence around his eyelids. I recommend ciprofloxacin eyedrops until this clears. 7. Aortic stenosis status post transcatheter aortic valve replacement-patient has been doing reasonably well in regards to his aortic valve. 8. Hypertension-uncontrolled currently. Will resume diltiazem 180 mg daily. 9. Insomnia-will continue melatonin 3 mg daily. 10. DVT prophylaxis-compression devices and encourage mobilization. No heparin or Lovenox in light of thrombocytopenia. 11. Disposition-will need to see how he does over the coming days. I think his preference would be to return home to his apartment with home health. Objective: Vital Signs Temp Pulse Resp BP Pulse Ox 36.2 C 93 18 152/83 H 96 10/12/17 11:37 10/12/17 13:49 10/12/17 11:37 10/12/17 13:49 10/12/17 11:37 10/11/17 10/12/17 10/13/17 05:59 05:59 05:59 Intake Total 820 Output Total 370 Balance 450 PT 13.3 SEC (12.0-15.0) 10/12/17 04:05 INR 0.99 (0.83-1.16) 10/12/17 04:05 ICD10 Worksheet Patient Problems: Problems Problem Status Onset Alcoholic intoxication Acute Dehydration Acute Generalized weakness Acute Hypoglycemia Acute Alcoholism Acute Back pain Acute Chronic Disease Mgmt/Transitional Care Acute Congestive heart failure Acute Dyspnea on exertion Acute Failure to thrive in adult Acute Fracture dislocation of joint of right upper extremity Acute Humeral fracture Acute Hyponatremia Acute Nocturnal cough Acute Urinary retention Acute
[2017-10-12] MEDS: CIPROFLOXACIN 0.3% EACHEYE SCH ×3 (16:12→22:19)
[2017-10-12] MEDS: MELATONIN 3 MG TAB PO SCH (19:47)
[2017-10-13] MEDS: CIPROFLOXACIN 0.3% EACHEYE SCH ×6 (02:43→20:23)
[2017-10-13] MEDS: LORazepam 2 MG/ML INJ IVP PRN ×3 (02:54→20:19)
[2017-10-13 04:27] LABS: PLATELET COUNT 34 10^3/uL (150-400)
[2017-10-13 05:40] LABS: CREATINE KINASE 55 IU/L (0-224)
[2017-10-13] MEDS ORDERED: POTASSIUM CL 20 MEQ TAB PO ONE (08:25)
[2017-10-13] MEDS: ETHACRYNIC ACID 25 MG TAB PO SCH (08:52)
[2017-10-13] MEDS: CALCIUM CARBONATE 500 MG TAB PO SCH (08:52)
[2017-10-13] MEDS: ATORVASTATIN CALCIUM 20 MG TAB PO SCH (08:52)
[2017-10-13] MEDS: FOLIC ACID 1 MG TAB PO SCH (08:52)
[2017-10-13] MEDS: DILTIAZEM CD 180 MG CAP PO SCH (08:52)
[2017-10-13] MEDS: THIAMINE HCL 100 MG TAB PO SCH (08:52)
[2017-10-13] MEDS ORDERED: MAGNESIUM SULF 2 GM/WATER 50 ML IV ONE (09:50)
[2017-10-13] MEDS: NS 1,000 ML IV SCH (10:32)
--- NOTE | 2017-10-13 11:52 | HOSPPROG ---
Hospitalist Progress Note Assessment/Plan: #FTT: multifactorial with compression fx, alcohol use -trying to arrange LT care for him, but he is very resistant. Will further d/w patient to determine medical capacity once not withdrawing from EToh #Etoh dependence: actively withdrawing. CIWa #Acute toxic encephalopathy: due to Etoh w/d #L4 compression fracture: #Hypomagnesium/hypokalemia: repleting #Interstitial fibrosis: seen on CT #Dyspnea: no PE or effusion on CTA. No signs of PNA. #: prior TAVR #Conjunctivitis: cipro eye gtts #Severe deconditioning: friends called CM and very concerned that he cannot care for himself. He requires 2-3 person assist here. He may be agreeable to SNF , but not [facility]. Will need to readdress when MS is clear. Palliative care consult #Acute encephalopathy: due to Etoh w/d. No focal deficits #Protein caloric malnutrition: encourage supplements #Diet: regular #Disp: cont inpatient admission for PT/OT, electrolyte repletion, CIWA # Subjective: wants to go back home though reports falling and getting more weak Objective: Vital Signs Temp Pulse Resp BP Pulse Ox 36.7 C 82 18 118/73 93 10/13/17 11:19 10/13/17 11:19 10/13/17 11:19 10/13/17 11:19 10/13/17 11:19 Laboratory Results 10/13/17 04:02 10/13/17 04:02 10/12/17 10/13/17 10/14/17 05:59 05:59 05:59 Intake Total 3258 Output Total 770 Balance 2488 PT 13.3 SEC (12.0-15.0) 10/12/17 04:05 INR 0.99 (0.83-1.16) 10/12/17 04:05 - Time Spent With Patient Time Spent with Patient: greater than 35 minutes Time Spent with Patient: Greater than 35 minutes spent on this patients care, greater than 50% of time spent counseling, educating, and coordinating care regarding the above mentioned plan. - Physical Exam Constitutional: chronically ill appearing, cachectic Eyes: PERRL Ears, Nose, Mouth, Throat: moist mucous membranes Cardiovascular: regular rate and rhythym Musculoskeletal: generalized weakness Neurologic: CN II-XII Intact Psychiatric: flat affect ICD10 Worksheet Patient Problems: Problems Problem Status Onset Alcoholic intoxication Acute Dehydration Acute Generalized weakness Acute Hypoglycemia Acute Alcoholism Acute Back pain Acute Chronic Disease Mgmt/Transitional Care Acute Congestive heart failure Acute Dyspnea on exertion Acute Failure to thrive in adult Acute Fracture dislocation of joint of right upper extremity Acute Humeral fracture Acute Hyponatremia Acute Nocturnal cough Acute Urinary retention Acute
--- NOTE | 2017-10-13 12:45 | ASMTCMCOM ---
CM Note CM Note Notes: 10/13/2017 Case Management Note Phone call from Asia Wang [phone] who lives near [facility] and has been friend of pt since college. Asia was in [place] last month to help pt clean up apartment after d/c from [facility]. Asia has concerns regarding pt ability to function independently at home. Phone call from Layo Morse [phone] also a friend from college. Layo visits with pt on regular basis and is very concerned about pt living condition. Layo has access to pt apartment and has bought over pt belongings to the hospital. He is bringing a back brace requested by PT later today. Layo plans to make APS call today. Met w/pt and Layo with Asia teleconferenced in this morning to discuss d/c poc. Pt signed MDPOA designating both Layo and Asia as equal MDPOAs. Signing was witnessed by case management and Layo. Pt signature was illegible. Document is in chart. PT agreeable to Palliative care outpatient. Case Management notified MD for order. Pt agreeable to SNF rehab but is unwilling to go back to [facility]. Faxed referrals to [facility] and [facility] at pt request. Pt is unwilling to consider [facility] helper living in a [facility] at this time. Faxed ULTC 100 to [facility] and confirmed receipt with [facility] for HCBS services after SNF rehab. [facility] bottle caser will access pt with in 48 hours. Pt lacks insight into ability to function independently. Pt currently requiring Josh lift for transfers. Case Management d/c poc: to SNF pending acceptance. Case Management to follow. Date Signed: 10/13/2017 12:44 PM Electronically Signed By:Day Clarke RN
--- NOTE | 2017-10-13 16:01 | PDMN ---
Medical Necessity Medical necessity: change to IP; los>2mn for FTT r/t compression fx, etoh abuse w/active withdrawal, encephalopathy, hypomagnesia/hypokalemia, dyspnea, interstitial fibrosis, severe deconditioning, and protein calorie malnutriition ; requires CIWA, PT/OT, electrolyte repletion, and safe discharge plan; per order and progress note 10/13/17
[2017-10-13] MEDS: MELATONIN 3 MG TAB PO SCH (20:18)
[2017-10-14] MEDS: LORazepam 2 MG/ML INJ IVP PRN ×2 (00:21→11:34)
[2017-10-14] MEDS: CIPROFLOXACIN 0.3% EACHEYE SCH ×6 (03:06→21:26)
[2017-10-14] MEDS: ACETAMINOPHEN 325 MG TAB PO PRN ×2 (03:06→22:03)
[2017-10-14 04:46] LABS: PLATELET COUNT 28 10^3/uL (150-400)
[2017-10-14 10:35] LABS: HEPATITIS C ANTIBODY TOTAL NEGATIVE (NEGATIVE)
--- NOTE | 2017-10-14 10:35 | HOSPPROG ---
Hospitalist Progress Note Assessment/Plan: #FTT: multifactorial with compression fx, alcohol use -trying to arrange LT care for him, but he is very resistant. Will further d/w patient to determine medical capacity once not withdrawing from EToh #Thrombocytopenia: dropped, now 28. Has not received heparin here. Further evaluate: abd U/S, folate/b12, smear. Stop ethacrynic acid, which can cause low platelets #Fall: trying to get out bed. Hit left shoulder and no bruising. No focal deficits #Etoh dependence: actively withdrawing. CIWa #Acute toxic encephalopathy: due to Etoh w/d #L4 compression fracture: #Hypomagnesium/hypokalemia: repleting #Interstitial fibrosis: seen on CT #Dyspnea: no PE or effusion on CTA. No signs of PNA. #: prior TAVR #Conjunctivitis: cipro eye gtts #Severe deconditioning: friends called CM and very concerned that he cannot care for himself. I stressed to him today that not safe at home and high-risk for bleeding if falls. He is agreeable to SNF. Palliative care consult #Acute encephalopathy: resolved. No focal deficits, due to Etoh w/d #Protein caloric malnutrition: encourage supplements #Diet: regular #Disp: cont inpatient admission for PT/OT, electrolyte repletion, CIWA # Subjective: fell from chair to floor onto shoulder Objective: Vital Signs Temp Pulse Resp BP Pulse Ox 36.4 C 73 19 141/86 H 92 10/14/17 08:00 10/14/17 08:00 10/14/17 08:00 10/14/17 08:00 10/14/17 08:16 Laboratory Results 10/14/17 04:09 10/14/17 04:09 10/13/17 10/14/17 10/15/17 05:59 05:59 05:59 Intake Total 3258 1879 Output Total 770 1100 Balance 2488 779 PT 13.3 SEC (12.0-15.0) 10/12/17 04:05 INR 0.99 (0.83-1.16) 10/12/17 04:05 - Physical Exam Constitutional: chronically ill appearing Eyes: PERRL Ears, Nose, Mouth, Throat: dry mucous membranes Cardiovascular: regular rate and rhythym Respiratory: no respiratory distress Gastrointestinal: normoactive bowel sounds, soft, non-tender abdomen Genitourinary: no bladder fullness Skin: warm Musculoskeletal: other (back brace on) Neurologic: AAOx3, other (tongue fasiculations, hand tremors) Psychiatric: interacting appropriately ICD10 Worksheet Patient Problems: Problems Problem Status Onset Alcoholic intoxication Acute Dehydration Acute Generalized weakness Acute Hypoglycemia Acute Alcoholism Acute Back pain Acute Chronic Disease Mgmt/Transitional Care Acute Congestive heart failure Acute Dyspnea on exertion Acute Failure to thrive in adult Acute Fracture dislocation of joint of right upper extremity Acute Humeral fracture Acute Hyponatremia Acute Nocturnal cough Acute Urinary retention Acute
[2017-10-14] MEDS: NS 1,000 ML IV SCH (10:56)
[2017-10-14] MEDS: FOLIC ACID 1 MG TAB PO SCH (10:57)
[2017-10-14] MEDS: THIAMINE HCL 100 MG TAB PO SCH (10:57)
[2017-10-14] MEDS: CALCIUM CARBONATE 500 MG TAB PO SCH (10:57)
[2017-10-14] MEDS: DILTIAZEM CD 180 MG CAP PO SCH (10:57)
[2017-10-14] MEDS: ATORVASTATIN CALCIUM 20 MG TAB PO SCH (10:57)
[2017-10-14] MEDS: ETHACRYNIC ACID 25 MG TAB PO SCH (11:40)
--- NOTE | 2017-10-14 16:01 | ASMTCMCOM ---
CM Note CM Note Notes: 10/14/2017 Case Management Note Met w/pt during rounds. Pt agreeable to SNF rehab. Completed [employer] medicaid christiana. Assessed by [facility] for ULTC 100 LTC this morning. Completed non triggering PASSR. CIWA score improving, cog eval should be possible soon. Phone call to [facility] [phone] confirming pt was open with [facility] during the first of September after d/c from [facility]. [facility] stopped supports shortly after because pt was not homebound. Case Management met w/ Norm from [facility] who is reviewing case with admininstrators. Faxed referral to [facility] from [facility]. She plans to assess pt tomorrow. [facility] accepted pt but pt has refused return to [facility]. Palliative meeting to happen once CIWA is improved. Case Management d/c poc: to be determined. Case Management to follow Date Signed: 10/14/2017 04:00 PM Electronically Signed By:Day Clarke RN
[2017-10-14] MEDS ORDERED: PROTOCOL POTASSIUM 1 DOSE MISC PRN (16:40)
[2017-10-14] MEDS ORDERED: PROTOCOL MAGNESIUM 1 DOSE IV PRN (16:40)
[2017-10-14] MEDS ORDERED: MAGNESIUM SULF 2 GM/WATER 50 ML IV ONE (17:39)
[2017-10-14] MEDS ORDERED: POTASSIUM CL 10 MEQ TAB PO ONE (19:57)
[2017-10-14] MEDS: MELATONIN 3 MG TAB PO SCH (21:27)
[2017-10-15] MEDS: CIPROFLOXACIN 0.3% EACHEYE SCH ×6 (02:09→22:06)
[2017-10-15 05:05] LABS: PLATELET COUNT 30 10^3/uL (150-400)
--- NOTE | 2017-10-15 08:51 | HOSPPROG ---
Hospitalist Progress Note Assessment/Plan: # FTT with severe deconditioning - multifactorial; very weak, working with PT/ OT - palliative care c/s # fall - no clear injury # etOH abuse and w/d - still on CIWA but hasn't received ativan for almost 24 hours - cont thiamine # acute encephalopathy - better, likely d/t etOH # hypoMg - d/t etOH, replete # hypoK - suspect malnutrition - replete # pancytopenia - no splenomegaly noted on US - suspect BM suppression - follow # L4 compression fracture - brace # interstitial fibrosis on CT - outpatient f/u if he wants # s/p TAVR # conjunctivitis - cipro eye gtt # protein calorie malnutrition Subjective: comfortable, resting in chair today Objective: Vital Signs Temp Pulse Resp BP Pulse Ox 36.8 C 73 18 148/87 H 97 10/15/17 07:28 10/15/17 07:28 10/15/17 07:28 10/15/17 07:28 10/15/17 07:28 Laboratory Results 10/15/17 04:18 10/15/17 04:18 10/14/17 10/15/17 10/16/17 05:59 05:59 05:59 Intake Total 1879 2148 Output Total 1100 2250 450 Balance 779 -102 -450 PT 13.3 SEC (12.0-15.0) 10/12/17 04:05 INR 0.99 (0.83-1.16) 10/12/17 04:05 chart reviewed CTA reviewed US reviewed - Physical Exam Constitutional: unkempt, other (brace) Cardiovascular: regular rate and rhythym, no murmur, rub, or gallop Respiratory: no respiratory distress, other (R basliar crackles), No expiratory wheeze, No bronchial breath sounds Gastrointestinal: soft, non-tender abdomen, no palpable masses ICD10 Worksheet Patient Problems: Problems Problem Status Onset Alcoholic intoxication Acute Dehydration Acute Generalized weakness Acute Hypoglycemia Acute Alcoholism Acute Back pain Acute Chronic Disease Mgmt/Transitional Care Acute Congestive heart failure Acute Dyspnea on exertion Acute Failure to thrive in adult Acute Fracture dislocation of joint of right upper extremity Acute Humeral fracture Acute Hyponatremia Acute Nocturnal cough Acute Urinary retention Acute
[2017-10-15] MEDS: DILTIAZEM CD 180 MG CAP PO SCH (09:41)
[2017-10-15] MEDS: FOLIC ACID 1 MG TAB PO SCH (09:42)
[2017-10-15] MEDS: THIAMINE HCL 100 MG TAB PO SCH (09:42)
[2017-10-15] MEDS: CALCIUM CARBONATE 500 MG TAB PO SCH (09:42)
[2017-10-15] MEDS: ATORVASTATIN CALCIUM 20 MG TAB PO SCH (09:42)
[2017-10-15] MEDS ORDERED: THIAMINE HCL 100 MG TAB PO SCH (13:24)
--- NOTE | 2017-10-15 15:08 | ASMTCMCOM ---
CM Note CM Note Notes: Pts case discussed in tx rounds. VERONICA spoke w/ Norm from [facility]. Norm has approved for pt to come to his facility as early as tomorrow. CM notified Magdalena at [facility] to send over her evaluation to [facility]. CM notified pts tx team of this news. CM met w/ pt and Kyaw for a palliative. Pt reports that if he was to get sick again he would like to be treated at the hospital. VERONICA left a msg for LEANNE Luo with [facility] to see if she could help him obtain a phone. CM to follow. Plan: [facility] Date Signed: 10/15/2017 03:07 PM Electronically Signed By:LEANNE Berger
[2017-10-15] MEDS: amLODIPine BESYLATE 5 MG TAB PO SCH (15:45)
[2017-10-15] MEDS ORDERED: POTASSIUM CL 10 MEQ TAB PO ONE (19:34)
[2017-10-15] MEDS: ACETAMINOPHEN 325 MG TAB PO PRN (20:25)
[2017-10-15] MEDS: MELATONIN 3 MG TAB PO SCH (20:26)
[2017-10-16] MEDS: CIPROFLOXACIN 0.3% EACHEYE SCH ×4 (02:15→13:47)
[2017-10-16 04:24] LABS: PLATELET COUNT 40 10^3/uL (150-400)
[2017-10-16] MEDS ORDERED: POTASSIUM CL 10 MEQ TAB PO ONE ×2 (06:37→08:45)
[2017-10-16] MEDS ORDERED: MAGNESIUM SULF 1 GM/DEXTROSE 100 ML IV ONE ×2 (06:38→08:45)
[2017-10-16] MEDS: DILTIAZEM CD 180 MG CAP PO SCH (08:45)
[2017-10-16] MEDS: ATORVASTATIN CALCIUM 20 MG TAB PO SCH (08:45)
[2017-10-16] MEDS: amLODIPine BESYLATE 5 MG TAB PO SCH (08:47)
[2017-10-16] MEDS: THIAMINE HCL 100 MG TAB PO SCH (08:47)
[2017-10-16] MEDS: CALCIUM CARBONATE 500 MG TAB PO SCH (08:48)
[2017-10-16] MEDS ORDERED: FOLIC ACID 1 MG TAB PO SCH (09:00)
[2017-10-16 11:38] VITALS: BP 150/95
--- NOTE | 2017-10-16 11:43 | PDIAF ---
- Diagnosis Diagnosis: Weakness, etOH abuse Code Status: Do Not Resuscitate - Medication Management Discharge Medications: Medications to Continue on Transfer Atorvastatin Calcium [Lipitor 20 mg (*)] 20 mg PO DAILY 08/03/17 [Last Taken 3 Days Ago ~10/09/17] Diltiazem HCl [Diltiazem 24Hr ER] 180 mg PO DAILY 08/03/17 [Last Taken 3 Days Ago ~10/09/17] Melatonin [Melatonin 3 MG (*)] 3 mg PO HS tab 08/10/17 [Last Taken Unknown] Multivitamins [Multivitamin (*)] 1 each PO DAILY tab 08/10/17 [Last Taken Unknown] Thiamine HCl [Vitamin B-1] 100 mg PO DAILY tab 08/10/17 [Last Taken Unknown] Calcium Carbonate [Oyster Shell Calcium 500 mg (*)] 500 mg PO DAILY 10/12/17 [ Last Taken Unknown] Magnesium Oxide [Magnesium Oxide 400 mg (*)] 400 mg PO DAILY #30 tab 10/16/17 [ Last Taken Unknown] amLODIPine BESYLATE [Norvasc 5 mg (*)] 5 mg PO DAILY tab 10/16/17 [Last Taken Unknown] Discharge Medications: Refer to the Discharge Home Medication list for PRN reason. - Orders Services needed: Registered Nurse, Certified Motor Vehicle Examiner, Physical Therapy, Occupational Therapy Isolation Type: None Diet Recommendation: no restrictions on diet Weigh Patient: weekly - Labs/Radiology BMP Date: 10/21/17 CMP Date: 10/21/17 Other Lab Name, Date and Time: Mg on 10/21/17 - Follow Up Care Current Providers and Referrals: Patient,NotPresent [Unknown] - As per Instructions
--- NOTE | 2017-10-16 11:50 | PDIAF ---
- Diagnosis Diagnosis: Weakness, etOH abuse Code Status: Do Not Resuscitate - Medication Management Discharge Medications: Medications to Continue on Transfer Atorvastatin Calcium [Lipitor 20 mg (*)] 20 mg PO DAILY 08/03/17 [Last Taken 3 Days Ago ~10/09/17] Diltiazem HCl [Diltiazem 24Hr ER] 180 mg PO DAILY 08/03/17 [Last Taken 3 Days Ago ~10/09/17] Melatonin [Melatonin 3 MG (*)] 3 mg PO HS tab 08/10/17 [Last Taken Unknown] Multivitamins [Multivitamin (*)] 1 each PO DAILY tab 08/10/17 [Last Taken Unknown] Thiamine HCl [Vitamin B-1] 100 mg PO DAILY tab 08/10/17 [Last Taken Unknown] Calcium Carbonate [Oyster Shell Calcium 500 mg (*)] 500 mg PO DAILY 10/12/17 [ Last Taken Unknown] Magnesium Oxide [Magnesium Oxide 400 mg (*)] 400 mg PO DAILY #30 tab 10/16/17 [ Last Taken Unknown] amLODIPine BESYLATE [Norvasc 5 mg (*)] 5 mg PO DAILY tab 10/16/17 [Last Taken Unknown] Discharge Medications: Refer to the Discharge Home Medication list for PRN reason. - Orders Services needed: Registered Nurse, Certified Primary Montessori Teacher, Physical Therapy, Occupational Therapy Isolation Type: None Diet Recommendation: no restrictions on diet Weigh Patient: weekly Activity/Weight Bearing Restrictions: wear brace when out of bed - Labs/Radiology BMP Date: 10/21/17 CMP Date: 10/21/17 Other Lab Name, Date and Time: Mg on 10/21/17 - Follow Up Care Current Providers and Referrals: Patient,NotPresent [Unknown] - As per Instructions
--- NOTE | 2017-10-16 12:14 | GDS ---
[f rep st] DISCHARGE SUMMARY ALL DIAGNOSES: 1. Failure to thrive with severe deconditioning. 2. Fall. 3. Alcohol abuse and withdrawal. 4. Acute encephalopathy. 5. Hypomagnesemia. 6. Hypokalemia. 7. Pancytopenia with marked thrombocytopenia. 8. L4 compression fracture. 9. Interstitial fibrosis on CT scan. 10. Aortic stenosis, status post transcatheter aortic valve replacement. 11. Conjunctivitis, resolved. 12. Protein calorie malnutrition. HOSPITAL COURSE BY PROBLEM: 1. Failure to thrive with severe deconditioning: This is multifactorial. He was found in very poor conditions by EMS after he called them. This is improving with nutrition, physical therapy, holding alcohol. He will need ongoing physical therapy and occupational therapy. He will be discharged to a snf facility. He was seen by Palliative Care as an inpatient. 2. Aortic stenosis, status post TAVR: This has been a chronic problem, not an issue while he has be en here. TAVR was done in 2016. Notably, his epicritic acid was held on admission given his concern s for worsening of thrombocytopenia. His volume status will need to be followed as an outpatient. I will continue to hold diuretics as he also has an allergy to sulfa. He has not had any volume overl oad since admission here. I have written to have weekly weights checked. Also recommend checking a basic metabolic panel in approximately 5 days after discharge. 3. Electrolyte abnormalities: These have been aggressively repleted. This is due to malnutrition a nd alcohol. I have started him on a magnesium supplement. We will check magnesium in 5 days. Hypok alemia may improve now that he is off loop diuretics. 4. Thrombocytopenia: Unclear if this was related to epicritic acid or his alcohol use. He had no s plenomegaly seen on ultrasound, however. His platelets kuldeep was 28, they have risen to 40 on the da y of discharge. I have written to check these in 5 days. 5. L4 compression fracture: He is currently in a brace. He should continue to wear this brace when out of bed. He should follow up with Dr. Simone Moser as an outpatient. 6. Interstitial fibrosis on CT scan: Could consider outpatient followup for this. He should probab ly get a referral to Pulmonology on discharge from snf facility. 7. Hypertension: He will be discharged on diltiazem and amlodipine. This may need to be titrated a s an outpatient. BILLING: I spent more than 30 minutes on the day of discharge coordinating care. /[id number]/MODL
== END 2017-10-16 16:19 | DRG 640 ==
LOC: EDUNIT# → OBSVTOIN 05:32 → F2W 07:25
PROVIDERS: ADMIT Family Medicine; ATTEND Family Medicine
DX: R62.7 Adult failure to thrive (principal); F10.239 Alcohol dependence with withdrawal, unspecified; G92 Toxic encephalopathy; E46 Unspecified protein-calorie malnutrition; D61.818 Other pancytopenia; M48.56XA Collapsed vertebra, not elsewhere classified, lumbar region, initial encounter for fracture; I50.30 Unspecified diastolic (congestive) heart failure; I10 Essential (primary) hypertension; E83.42 Hypomagnesemia; E87.6 Hypokalemia; E86.0 Dehydration; D69.6 Thrombocytopenia, unspecified; J84.10 Pulmonary fibrosis, unspecified; R29.6 Repeated falls; R63.6 Underweight; Z68.21 Body mass index [BMI] 21.0-21.9, adult; L89.150 Pressure ulcer of sacral region, unstageable; R06.00 Dyspnea, unspecified; H10.9 Unspecified conjunctivitis; Z66 Do not resuscitate; Z95.3 Presence of xenogenic heart valve
CPT/HCPCS: 82607-90; 92523-GN; 96365; 97116-GP; 97163-GP; 97167-GO; 97530-GO; 97530-GP; 97535-GO; G0378; G0472; G0480; G8978-GP-CM; G8979-GP-CJ; G8987-GO-CM; G8988-GO-CK; G9165-GN-CI; G9166-GN-CI; G9167-GN-CI; J1940; J2060; J3411; J3475; Q9967

== ENCOUNTER → 2017-11-05 | Outpatient (CLI) | payer OTHER, MEDICAID | LOC: FIMAGING 15:05 | PROVIDERS: ATTEND Physician Assistant | DX: M48.56XD Collapsed vertebra, not elsewhere classified, lumbar region, subsequent encounter for fracture with routine healing (principal) ==

== ENCOUNTER 2018-08-29 12:53 | Inpatient (IN) | payer OTHER, MEDICAID ==
--- NOTE | 2018-08-29 13:07 | EDPHY ---
H & P Stated Complaint: Low back pain. Time Seen by Provider: 08/29/18 13:07 HPI/ROS: HPI: This is a 78-year-old male who presents with Chief Complaint: Failure to thrive, alcoholism, lower back pain Location: body Quality: Failure to thrive, alcoholism, lower back pain Duration: Unknown Signs and Symptoms: No bleeding, no radiation, no numbness, no weakness, no tingling, no incontinence, no decreased range of motion, no swelling, no pain, no fever Timing: Acute on chronic Severity: Moderate Context: Patient presents via EMS when he called the fire department for low back pain. Patient reports that lumbar area the size of his hand in the bed lying has aching, nonradiating pain. Pain is worse with flexion and extension. He reports to me that he "wenched" his back while twisting approximately 1 week ago. He reports that drinking alcohol is not helping his pain. Upon EMS arrival to his place, patient was covered in feces with extremely untidy and unsanitary conditions. Chart review shows that patient has been placed several times due to failure to thrive and inability to care for himself. Adult protective services are well aware of this patient. Patient denies any ability to ambulate, change in bowel or bladder habits, fever, urinary symptoms. Modifying Factors: None Comment: ROS: A comprehensive 10 system review of systems is otherwise negative aside from elements mentioned in the history of present illness. MEDICAL/SURGICAL/SOCIAL HISTORY: Medical/surgical history: AAA surgical repair, HTN, right Shoulder surgery, BOWEL RESECTION, CHOLEcystectomy, rheumatic fever. Laminectomy. Surgical history: Denies Social history: Lives alone. Former smoker. Drinks alcohol every evening. CONSTITUTIONAL: Untidy, malodorous, talkative, elderly white male, awake and alert, no obvious distress HEENT: Atraumatic and normocephalic. Poor dentition. NECK: supple, no midline tenderness, flexion 45 degrees, extension 45 degrees, right and left lateral flexion 45 degrees. No meningismus. Cardiovascular: Normal S1/S2, tachycardia, regular rhythm, without murmur rub or gallop. PULMONARY/CHEST: Symmetrical and nontender. Clear to auscultation bilaterally. Good air movement. No accessory muscle usage. ABDOMEN: Soft, nondistended, nontender. BACK: Moderate bilateral lumbar paraspinous muscle reproducible tenderness, No midline tenderness, no paraspinous spasm, deep tendon reflexes 2/2, mild pain with straight leg raise, No foot drop. Achilles reflexes are equal bilaterally. Able to walk on heels and toes without difficulty. EXTREMITIES: 2/2 pulses, strength 5/5, DIP/PIP/MCP flexion/extension intact with good light touch sensation. no deformities, no clubbing, no cyanosis or edema. NEUROLOGICAL: no focal neuro deficits. GCS 15. Light touch sensation intact. SKIN: Warm and dry, pallor, no erythema. no rash. Good capillary refill. Source: Patient Exam Limitations: No limitations - Personal History Current Tetanus Diphtheria and Acellular Pertussis (TDAP): Unsure - Medical/Surgical History Hx Asthma: No Hx Chronic Respiratory Disease: No Hx Diabetes: No Hx Cardiac Disease: Yes Hx Renal Disease: No Hx Cirrhosis: No Hx Alcoholism: No Hx HIV/AIDS: No Hx Splenectomy or Spleen Trauma: No Other PMH: AAA surgical repair, HTN, right [place] surgery, BOWEL RESCECTION, CHOLEcystectomy, rheumatic fever. Laminectomy. - Social History Smoking Status: Former smoker Constitutional: Initial Vital Signs Temperature (C) 36.8 C 08/29/18 12:58 Heart Rate 104 H 08/29/18 12:58 Respiratory Rate 18 08/29/18 12:58 Blood Pressure 164/102 H 08/29/18 12:58 O2 Sat (%) 90 L 08/29/18 12:58 O2 Delivery Mode Room Air Allergies/Adverse Reactions: aspirin Allergy (Mild, Verified 10/12/17 03:54) Beta-Blockers (Beta-Adrenergic Bloc Allergy (Verified 10/12/17 03:54) Sulfa (Sulfonamide Antibiotics) Allergy (Verified 10/12/17 03:54) Home Medications: Medication Instructions Recorded Atorvastatin Calcium [Lipitor 20 20 mg PO DAILY 08/03/17 mg (*)] Diltiazem HCl [Diltiazem 24Hr ER] 180 mg PO DAILY 08/03/17 Melatonin [Melatonin 3 MG (*)] 3 mg PO HS tab 08/10/17 Multivitamins [Multivitamin (*)] 1 each PO DAILY tab 08/10/17 Thiamine HCl [Vitamin B-1] 100 mg PO DAILY tab 08/10/17 Calcium Carbonate [Oyster Shell 500 mg PO DAILY 10/12/17 Calcium 500 mg (*)] Magnesium Oxide [Magnesium Oxide 400 mg PO DAILY #30 tab 10/16/17 400 mg (*)] amLODIPine BESYLATE [Norvasc 5 mg 5 mg PO DAILY tab 10/16/17 (*)] Medical Decision Making - Diagnostics Imaging Results: Imaging Impressions Lumbar Spine X-Ray 08/29/18 13:17 Impression: 1. Stable lumbar spine with old compression deformities of L1 and L4 and kyphotic deformity associated with the L1 fracture. 2. See above report for additional findings. ED Course/Re-evaluation: Vital signs reviewed and show O2 sats 90% on room air with mild tachycardia. Placed on court recording monitor. IV access, laboratory studies, urinalysis, lumbar sacral x-ray ordered Given Percocet Case management consult. 1415: Labs reviewed. No leukocytosis, macrocytosis without anemia, sodium 132 , lipase 430 1420: LS x-rays my read via PAC shows severe degenerative disc disease, stenosis but no acute fracture. + old compression fracture seen 1437: Urinalysis shows no signs of infection, no hematuria. Case management recommends inpatient admission 3 day stay for placement. 1442: ED decision to consult for admission for failed her the thrive, falls, inability to care for self and perform activities of daily living. Spoke with hospitalist, Dr. Roland, kindly agrees to admit patient and provide further care. This patient was seen under the supervision of my primary supervising physician. I evaluated care for this patient independently. Differential Diagnosis: Back pain including but not limited to muscular pain, herniated disc, spine fracture, intra-abdominal causes and urinary tract infection. - Data Points Laboratory Results: Laboratory Results 08/29/18 13:00 08/29/18 13:00 08/29/18 08/29/18 08/29/18 14:10 13:00 13:00 WBC 7.61 10^3/uL 10^3/uL (3.80-9.50) RBC 4.53 10^6/uL 10^6/uL (4.40-6.38) Hgb 16.1 g/dL g/dL (13.7-17.5) Hct 45.8 % % (40.0-51.0) MCV 101.1 fL H fL (81.5-99.8) MCH 35.5 pg H pg (27.9-34.1) MCHC 35.2 g/dL g/dL (32.4-36.7) RDW 12.0 % % (11.5-15.2) Plt Count 147 10^3/uL L 10^3/uL (150-400) MPV 10.0 fL fL (8.7-11.7) Neut % (Auto) 65.3 % % (39.3-74.2) Lymph % (Auto) 17.1 % % (15.0-45.0) [place] % (Auto) 15.8 % H % (4.5-13.0) Eos % (Auto) 0.5 % L % (0.6-7.6) Baso % (Auto) 0.1 % L % (0.3-1.7) Nucleat RBC Rel Count 0.0 % % (0.0-0.2) Absolute Neuts (auto) 4.97 10^3/uL 10^3/uL (1.70-6.50) Absolute Lymphs (auto) 1.30 10^3/uL 10^3/uL (1.00-3.00) Absolute Monos (auto) 1.20 10^3/uL H 10^3/uL (0.30-0.80) Absolute Eos (auto) 0.04 10^3/uL 10^3/uL (0.03-0.40) Absolute Basos (auto) 0.01 10^3/uL L 10^3/uL (0.02-0.10) Absolute Nucleated RBC 0.00 10^3/uL 10^3/uL (0-0.01) Immature Gran % 1.2 % H % (0.0-1.1) Immature Gran # 0.09 10^3/uL 10^3/uL (0.00-0.10) Sodium 132 mEq/L L mEq/L (135-145) Potassium 4.1 mEq/L mEq/L (3.5-5.2) Chloride 93 mEq/L L mEq/L (97-110) Carbon Dioxide 28 mEq/l mEq/l (22-31) Anion Gap 11 mEq/L mEq/L (6-14) BUN 28 mg/dL H mg/dL (7-23) Creatinine 0.8 mg/dL mg/dL (0.7-1.3) Estimated GFR > 60 Glucose 93 mg/dL mg/dL (70-100) Calcium 9.3 mg/dL mg/dL (8.5-10.4) Total Bilirubin 0.9 mg/dL mg/dL (0.1-1.4) Conjugated Bilirubin 0.5 mg/dL mg/dL (0.0-0.5) Unconjugated Bilirubin 0.4 mg/dL mg/dL (0.0-1.1) AST 28 IU/L IU/L (17-59) ALT 25 IU/L IU/L (21-72) Alkaline Phosphatase 81 IU/L IU/L (38-126) Total Protein 7.3 g/dL g/dL (6.3-8.2) Albumin 4.2 g/dL g/dL (3.5-5.0) Lipase 430 IU/L H IU/L (23-300) Urine Color YELLOW Urine Appearance CLEAR Urine pH 6.0 (5.0-7.5) Ur Specific [place] 1.015 (1.002-1.030) Urine Protein NEGATIVE (NEGATIVE) Urine Ketones NEGATIVE (NEGATIVE) Urine Blood NEGATIVE (NEGATIVE) Urine Nitrate NEGATIVE (NEGATIVE) Urine Bilirubin NEGATIVE (NEGATIVE) Urine Urobilinogen 2.0 EU H EU (0.2-1.0) Ur Leukocyte Esterase NEGATIVE (NEGATIVE) Urine Glucose NEGATIVE (NEGATIVE) Medications Given: Discontinued Medications Oxycodone/Acetaminophen (Percocet 5/325) 1 tab PO EDNOW ONE Stop: 08/29/18 14:21 Last Admin: 08/29/18 14:24 Dose: 1 tab Departure - Departure Disposition: [facility] Inpatient Acute Clinical Impression: Adult failure to thrive syndrome, At maximum risk for fall, Inability to perform activities of daily living, History of compression fracture of spine Lower back pain Qualifiers: Chronicity: chronic Back pain laterality: midline Sciatica presence: without sciatica Qualified Code(s): M54.5 - Low back pain; G89.29 - Other chronic pain; G89.29 - Other chronic pain Condition: Fair
[2018-08-29 13:41] LABS: PLATELET COUNT 147 10^3/uL (150-400)
[2018-08-29] MEDS ORDERED: OXYCODONE/APAP 5/325 TAB PO ONE (14:20)
[2018-08-29] MEDS ORDERED: hydrALAZINE 20 MG/ML VIAL IVP PRN (15:37)
[2018-08-29] MEDS ORDERED: FLUMAZENIL 0.5 MG/5 ML MDV IVP PRN (15:38)
[2018-08-29] MEDS ORDERED: PROMETHAZINE HCL 25 MG/ML INJ IVP PRN (15:38)
[2018-08-29] MEDS ORDERED: ACETAMINOPHEN 325 MG TAB PO PRN (15:38)
[2018-08-29] MEDS ORDERED: LORazepam 2 MG/ML INJ IVP PRN (15:38)
[2018-08-29] MEDS ORDERED: ONDANSETRON 4 MG/2 ML VIAL IVP PRN (15:38)
[2018-08-29] MEDS ORDERED: hydrALAZINE 20 MG/ML VIAL ONE (15:52)
[2018-08-29] MEDS ORDERED: HYDROmorphONE/DILAUDID 1 MG/ML INJ ONE (15:53)
[2018-08-29] MEDS: HYDROmorphONE/DILAUDID 1 MG/ML INJ IVP PRN ×2 (15:54→17:57)
[2018-08-29] MEDS ORDERED: LET GEL TOPICAL 1 EA SYR TP ONE (15:55)
--- NOTE | 2018-08-29 16:21 | GHP ---
[f rep st] HISTORY AND PHYSICAL DATE OF ADMISSION: 08/29/2018 CHIEF COMPLAINT: Low back pain. HISTORY: John is a 78-year-old male who thinks he injured his back about a week ago from a twisti ng motion, although he does not have a specific memory of an event that initiated the pain although camelia covington thinks he turned too quickly at one point to pick something up. Since then, he has had progressive worsening low back pain that has been unrelenting and become very severe to the point that he called EMS today. The patient is a known alcoholic. When EMS arrived, they found him sitting in his own u rine and feces with the entire apartment being completely unsanitary. He had a Depends on that was c ompletely saturated that had probably been there for days. He has some wound care issues on his bryan om as a result of this. He is known to APS in the past. He complains of nausea and vomiting for 1 week and has been unable to take anything by mouth and he a ttributes this due to worsening back pain. He denies any numbness or weakness in the legs. He has c hronic intermittent urine and bowel incontinence for many years. In the emergency room when they tri ed to get him to walk he could not even stand up by himself and could not make it to the bathroom wit hout a massive amount of assistance. PAST MEDICAL HISTORY: 1. Aortic stenosis, status post TAVR. 2. Chronic diastolic congestive heart failure. 3. Hypertension. 4. Interstitial lung disease. 5. Compression fractures. 6. Alcoholism. 7. Abdominal aortic aneurysm status post repair. PAST SURGICAL HISTORY: 1. Cholecystectomy. 2. Bowel resection as a complication of AAA repair. MEDICATIONS: Please see computerized record for full detailed list. ALLERGIES: Aspirin, beta gloria, and sulfa. SOCIAL HISTORY: He puffs on a cigarette because he likes the taste but he does not inhale. He does smoke marijuana frequently. He drinks alcohol although specifies it is not for social reasons, that he drinks alcohol just for sleep. Quantity is 16 ounces of twan per day, straight. He lives alone in an apartment. His long-term female partner a year and a half ago of brain cancer. He never had any children. 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 He has a degree in musical comp osition from [employer] ([place], [place]). REVIEW OF SYSTEMS: Complete review of systems obtained. Review of systems negative on constitutiona l, HEENT, GI, pulmonary, vascular, , hematology, skin, muscular, endocrine, psych except for positi ves as in HPI. FAMILY HISTORY: Reviewed, noncontributory to presenting complaint. PHYSICAL EXAMINATION: GENERAL: Well-developed, well-nourished male, in no distress. VITAL SIGNS: Temperature is 36.8, pulse 83, blood pressure 180/109, saturating 93% on room air. EYES: Normal con junctivae. Pupils react to light. ENT: Normal ears, nose. Hearing intact. Normal teeth. Orophar ynx moist. NECK: Trachea midline. No thyromegaly. CHEST: Normal effort. LUNGS: Clear to auscul tation bilaterally. CARDIOVASCULAR SYSTEM: Regular rhythm. No murmur. No lower extremity edema. ABDOMEN: Soft, nontender. No hepatosplenomegaly. SKIN: Warm, dry, intact. No rash. MUSCULOSKELE BALDEMAR: No cyanosis or clubbing. Strength 5/5 upper extremities. NEUROLOGIC: Cranial nerves intact. Normal sensation light touch. PSYCH: Alert and oriented x3. Normal affect. Normal judgment. Nor mal memory. LABORATORY DATA: White count 7.6, hematocrit 45.8, platelets 147, sodium 132, potassium 4.1, chlorid e 93, bicarb 28, BUN 28, creatinine 0.8, glucose 93. LFTs are negative. Lipase is 430. Urinalysis is negative. Lumbar spine x-ray shows old fractures at L1 and L4 that are unchanged. Medical record is reviewed. He has been admitted here in the past with complications of alcoholism a nd poor living situation. ASSESSMENT/PLAN: 1. Low back pain. His x-ray is negative. I suspect this is a muscle spasm and/or musculoskeletal i n origin. Will prescribe IV Toradol, lidocaine patch and Robaxin as needed, and try to minimize use of narcotics. We will consult PT/OT. 2. Alcoholism. He drinks 16 ounces of straight liquor per day. I anticipate that he will have some withdrawal. Will place him on a Clinical [place] Withdrawal Assessment protocol. 3. Nausea and vomiting and one week of decreased oral intake, and I do think he is mildly dehydrated although his laboratory studies look okay. Will continue IV fluids. 4. Failure to thrive. He was found covered in feces and urine. He has an unsanitary living situati on in his apartment. APS has been notified. Will consult Wound Care. 5. Hypertension, uncontrolled. I suspect this is due to medication noncompliance. He has been on b lood pressure pills in the past. Will clarify his medication reconciliation. Will prescribe IV hydr alazine as needed. 6. Chronic diastolic congestive heart failure. Currently euvolemic to dry but will continue to avery tor. CODE STATUS: DNR per patient's request. ADMISSION STATUS: Will admit to inpatient. Anticipate greater than 2 midnights given the severity o f presentation. DVT PROPHYLAXIS: He is high risk. Will place on subcu Lovenox. /[id number]/MODL
[2018-08-29] MEDS: NS 1,000 ML IV SCH (17:55)
--- NOTE | 2018-08-29 18:00 | ASMTCMCOM ---
CM Note CM Note Notes: Chart Review for Discharge Planning: Patient is 78 year old male who presented to [facility] ED via EMS, he called the Fire Department for Lower Back pain. EMS reported arriving to home in unsanitary/untidy conditions & covered in feces. Chart review shows history of failure to thrive and inability to care for himself, APS is aware of patient. Past medical history includes AAA surgical repair, hypertension, right shoulder surgery, bowel resection, cholecystectomy, rheumatic fever, lamiectomy. Patient lives alone and daily EtOH use. Patient under DNR status. Wound care to consult. CM to follow. D/C Plan: TBD Date Signed: 08/29/2018 06:00 PM Electronically Signed By:Maria Fernanda Saab
[2018-08-29] MEDS: METHOCARBAMOL 500 MG TAB PO PRN (20:11)
[2018-08-29] MEDS: oxyCODONE IR 5 MG TAB PO PRN (20:11)
[2018-08-29] MEDS ORDERED: PATCH REMOVAL 1 EA PATCH TD SCH (21:00)
[2018-08-29] MEDS: LIDOCAINE 4%/MENTHOL 1% PATCH TD SCH (21:41)
--- NOTE | 2018-08-29 22:18 | ASMTCMCOM ---
CM Note CM Note Notes: Late entry: Reviewed chart, spoke with JOSE MIGUEL Cason. Pt presented to the Emergency Department via EMS with back pain. History includes AAA repair, HTN, right shoulder surgery, bowel resection, michelle, rheumatic fever, laminectomy, ETOH abuse. Pt is single and lives alone in section 8, subsidized housing. CM approached by EMS upon arrival with concerns regarding pt's living conditions. Per EMS and [facility], "there was poop and urine on the floor of the pt's home." The apartment was found to be very dirty, cluttered,and unsanitary - "in a state of disarray." EMS responders report the pt as being "malnourished, not eating and unable to get around the apartment well." It was also noted that the pt "was soaked in urine and had bed bugs." EMS reported the pt's approximately a year and a half ago. On arrival to ED, pt was moaning and yelling out in pain. Per JOSE MIGUEL Cason, the pt was unable to ambulate to the bathroom and was only able to assist with removing his depends by shifting his hips from side to side on the bed. Pt was found to have exoriated skin in the isael area secondary to poor hygiene. Met with pt to discuss his current living situation and needs. Pt complains of "wrenching his back about 8 days ago." The pt reports that he "has had a hard time keeping up with things since he hurt his back." He states he lives alone. 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 The pt was very appropriate and did not appear to have any cognitive deficits. Pt admitted for failure to thrive and back pain. Per history and conversation with patient, it appears that his living conditions are suboptimal. Pt admits to "not cleaning as frequently as he should." Pt states he has a friend Mark Verduzco "who checks in on him monthy and helps him with house cleaning." In regards to the feces and urine, pt states he "isn't surprised, he's had a hard time the past few days." Regarding his drinking, pt states that he "does not drink socially, only drinks in his own home to help him sleep." He says it's very controlled drinking and without it, he suffers from insomnia. Regarding the bed bugs, pt states he has been told he has lice and thrips. Pt encouraged to speak with his section 8 property manager or contact at [facility] [employer] to have this investigated. CM also offered to contact his friend Mark for assistance cleaning the apartment. Pt agreedable to CM contacting Mark and his MDPOAs. Call placed to Mark. Per Mark, he visits the pt "once per month and does very light house cleaning." He reports "taking out the trash and touching up the bathroom." Mark says he "hasn't seen the apartment in about a month." He was due to visit tomorrow. He reports the "apartment is usually very dirty and is in need of a good cleaning." Mark says he "only does what John asks and allows." CM asked Mark if he could assist in cleaning the apartment prior to pt's discharge from the hospital - Mark stated he "didn't think so." Mark said he would call the pt tomorrow. Per prior CM notes, pt designated two MDPOA's in September of 2017. His friend Asia Wang who lives in [place], [place] is one and his friend Layo Morse who lives locally is the other. Call placed to Asia. Per Asia, she has known the pt "since the 1959's - they went to college together and dated briefly." She states she only visits once per year and doesn't know how it would look if she actually had to make medical decisions on the pt's behalf. Call placed to Layo, last number listed has been disconnected. Attempted to locate Layo's contact information online without success. Pt reports he "may have a different number at home." Per records, atleast two APS reports were filed in 2018. CM called [facility] APS , spoke with Vesna Loera. Report filed regarding unsanitary living conditions, as well as health and safety concerns. Call placed to [facility] [employer] at suggestion of [facility]. Spoke with Officer Sb, report filed - . Per Officer Sb, case to be forwarded to [facility] Land Surveyor Manager Charan Hernandez (who is in charge of at-risk senior cases). [facility] [employer] will work with the [facility] to further investigate concerns. Updates provided to pt, JOSE MIGUEL Cason, and Dr. Caba. Discharge plan remains unclear. CM spoke with pt about possiblity of going to a SNF for rehab. Pt agreeable. Pt states he has been to [place] before and "will never go back." Pt agreeable to placement at [facility] or [facility]. CM will await MD/PT/STACY weir and will continue to follow. Pt would benefit from additional referrals to Magdalena at [facility], HCBS assistance, Meals on Wheels and nonskilled caregiver support (which he may qualify for under his Medicaid benefits), if he should stay in his home. Discharge Plan: To be determined, likely SNF Rehab Date Signed: 08/29/2018 10:17 PM Electronically Signed By:Mary Cornell RN
[2018-08-30] MEDS: METHOCARBAMOL 500 MG TAB PO PRN ×3 (04:21→18:11)
[2018-08-30] MEDS: NS 1,000 ML IV SCH (04:21)
[2018-08-30] MEDS: KETOROLAC 30 MG/1 ML SDV IVP PRN (04:22)
[2018-08-30 05:31] LABS: INR 1.03 (0.83-1.16); PROTIME(PATIENT) 13.1 SEC (12.0-15.0)
[2018-08-30] MEDS: oxyCODONE IR 5 MG TAB PO PRN ×4 (06:20→21:47)
[2018-08-30] MEDS: DILTIAZEM CD 180 MG CAP PO SCH (09:06)
[2018-08-30] MEDS: DOXAZOSIN MESYLATE 4 MG TAB PO SCH (09:08)
[2018-08-30] MEDS: ENOXAPARIN 40 MG/0.4 ML SYR SC SCH (09:09)
[2018-08-30] MEDS: traMADol 50 MG TAB PO PRN ×2 (09:22→22:37)
[2018-08-30] MEDS: THIAMINE HCL 500 MG in NS 100 ML IV SCH (09:22)
[2018-08-30] MEDS: PATCH REMOVAL 1 EA PATCH TD SCH (09:27)
--- NOTE | 2018-08-30 11:43 | PDMN ---
Medical Necessity Medical necessity: [facility] P187 Failure to Thrive: 78 yo who called EMS for severe back pain. Pt known alcoholic. EMS reports they found pt sitting in own urine and feces, had Depends on that was completely saturated, apartment completely unsanitary. Further eval reveals dehydration prob r/t N/V per pt, sores to bottom. IVF, placed on CIWA protocol for potential w/d, wound care consult, PT/ OT consult. APS notified of pt status/living conditions. Admit IP status, anticipate >2MN for ongoing monitoring and tx of the above, pt is unsafe to go home. Hx TAVR, CHF, HTN, ILD, compression fractures, alcoholism, AAA repair.
--- NOTE | 2018-08-30 16:17 | HOSPPROG ---
Hospitalist Progress Note Assessment/Plan: low back pain - suspect muscle strain, improving -cont toradol, lidoderm, robaxin -PT/OT h/o hypertension - mostly normotensive today -prn hydral alcohol abuse - CIWA homelessness - CM following dispo - cont inpt, acute PT/OT, will need SNF, CM involved Subjective: PT is in good spirits. His back pain is improved. He denies CP or SOB. He is eating well. Ambulated with therapy. He is interested in SNF and possibly LTC. Objective: Vital Signs Temp Pulse Resp BP Pulse Ox 36.9 C 75 16 129/67 H 93 08/30/18 15:40 08/30/18 15:40 08/30/18 15:40 08/30/18 15:40 08/30/18 15:40 Laboratory Results 08/30/18 04:51 08/29/18 08/30/18 08/31/18 05:59 05:59 05:59 Intake Total 1052 Balance 1052 PT 13.1 SEC (12.0-15.0) 08/30/18 04:51 INR 1.03 (0.83-1.16) 08/30/18 04:51 - Physical Exam Constitutional: no apparent distress Eyes: PERRL Ears, Nose, Mouth, Throat: moist mucous membranes Cardiovascular: regular rate and rhythym Respiratory: no respiratory distress, clear to auscultation Gastrointestinal: normoactive bowel sounds, soft, non-tender abdomen Skin: warm Musculoskeletal: full muscle strength Neurologic: AAOx3 Psychiatric: interacting appropriately ICD10 Worksheet Patient Problems: Problems Problem Status Onset At maximum risk for fall Acute Failure to thrive in adult Acute History of compression fracture of spine Acute Inability to perform activities of daily living Acute Lower back pain Acute Alcoholic intoxication Acute Alcoholism Acute Back pain Acute Chronic Disease Mgmt/Transitional Care Acute Congestive heart failure Acute Dehydration Acute Dyspnea on exertion Acute Fracture dislocation of joint of right upper extremity Acute Generalized weakness Acute Humeral fracture Acute Hypoglycemia Acute Hyponatremia Acute Nocturnal cough Acute Urinary retention Acute
--- NOTE | 2018-08-30 16:44 | ASMTCMCOM ---
CM Note CM Note Notes: Spoke with hospitalist regarding pt. Pt may need LTC as he has not done well in the home and has difficulty caring for himself and keeping his house sanitary. Per hospitalist pt agreeable to SNF and/or LTC. Referrals sent to [facility]. [id number] and [facility] will need to be completed tomorrow. If pt returns home he may need HBCS to help with house cleaning. CM to notify [facility] tomorrow. Pt has history of ETOH abuse and lives in [address] 8 housing currently. CM to follow. D/C Plan: SNF to LTC Date Signed: 08/30/2018 04:42 PM Electronically Signed By:Leonela Orosco
[2018-08-30] MEDS: LIDOCAINE 4%/MENTHOL 1% PATCH TD SCH (20:55)
[2018-08-31] MEDS: METHOCARBAMOL 500 MG TAB PO PRN ×3 (00:09→23:01)
[2018-08-31] MEDS: oxyCODONE IR 5 MG TAB PO PRN ×4 (02:31→23:01)
[2018-08-31] MEDS: HYDROmorphONE/DILAUDID 1 MG/ML INJ IVP PRN (04:23)
[2018-08-31] MEDS: ENOXAPARIN 40 MG/0.4 ML SYR SC SCH (08:45)
[2018-08-31] MEDS: DILTIAZEM CD 180 MG CAP PO SCH (08:45)
[2018-08-31] MEDS: THIAMINE HCL 500 MG in NS 100 ML IV SCH (08:45)
[2018-08-31] MEDS: DOXAZOSIN MESYLATE 4 MG TAB PO SCH (08:45)
[2018-08-31] MEDS: PATCH REMOVAL 1 EA PATCH TD SCH (10:55)
[2018-08-31] MEDS: KETOROLAC 30 MG/1 ML SDV IVP PRN (12:41)
--- NOTE | 2018-08-31 14:08 | ASMTCMCOM ---
CM Note CM Note Notes: ADDENDUM: CM heard from Clarence at [facility] and pt is already current with HCBS and they have been trying to get in touch with pt and his friend Hernandez to renew their services without success. CM gave [facility] pt's friend Mark's contact which is in the chart. CM also suggested HCBS be increased as pt is having difficulties with his current level of care. [facility] will not do assessment for LTC at this time as pt has declined LTC at this time, but they will consider increasing HCBS when pt discharges from rehab. Pt accepted at [facility] and is agreeable. Date Signed: 08/31/2018 02:08 PM Electronically Signed By:Leonela Orosco
--- NOTE | 2018-08-31 14:11 | ASMTCMCOM ---
CM Note CM Note Notes: Spoke with pt in the room who declines LTC at this time and prefers to discharge to home, however he is agreeable to PT/OT recommendations and willing to discharge to a short term rehab. Emilia Quiroz and [facility] to do on-site evaluation today. Pt unwilling to return to [place] as he has been there before. [id number] filed with [facility] to initiate home based services as pt prefers to discharge from SNF to home. Katt at [facility] also contacted to provide support. Pt denies "a problem" with ETOH and does not want to give it up as it is the "only thing that helps him sleep at night" and he states he has tried melatonin and other things. Pt states he drinks 3 - 4 shots before bedtime only and never during the day. Pt denies hangovers. CM filed report with ROSALIE and upon pt's arrival to ED due to unsanitary conditions and bedbugs reported at pt's home. [facility] accepted at [facility] and is agreeable. CM to follow. D/C Plan: [facility] with follow up from [facility] on HCBS when pt returns home. Date Signed: 08/31/2018 02:10 PM Electronically Signed By:Leonela Orosco
--- NOTE | 2018-08-31 17:26 | HOSPPROG ---
Hospitalist Progress Note Assessment/Plan: 78 yo male with h/o hypertension presented to ed after being found in his home with total disarray, urine and feces on floor and on pt. He complained of low back pain. He is admitted for failure to thrive and inability to care for himself. low back pain - suspect muscle strain, improving -cont toradol, lidoderm, robaxin -PT/OT h/o hypertension - mostly normotensive -prn hydral alcohol abuse - CIWA dispo - cont inpt, acute PT/OT, will need SNF, CM involved Subjective: Pt is in good spirits. He likes to tell jokes. His back pain is much improved. He is ambulating better. Objective: Vital Signs Temp Pulse Resp BP Pulse Ox 36.6 C 62 18 138/76 H 90 L 08/31/18 16:00 08/31/18 16:00 08/31/18 16:00 08/31/18 16:00 08/31/18 16:00 Laboratory Results 08/30/18 04:51 08/30/18 08/31/18 09/01/18 05:59 05:59 05:59 Intake Total 1052 1829 Output Total 550 Balance 1052 1279 PT 13.1 SEC (12.0-15.0) 08/30/18 04:51 INR 1.03 (0.83-1.16) 08/30/18 04:51 - Physical Exam Constitutional: no apparent distress Eyes: PERRL Ears, Nose, Mouth, Throat: moist mucous membranes Cardiovascular: regular rate and rhythym Respiratory: no respiratory distress Gastrointestinal: normoactive bowel sounds, soft, non-tender abdomen Skin: warm Musculoskeletal: full muscle strength Neurologic: AAOx3 Psychiatric: interacting appropriately ICD10 Worksheet Patient Problems: Problems Problem Status Onset At maximum risk for fall Acute Failure to thrive in adult Acute History of compression fracture of spine Acute Inability to perform activities of daily living Acute Lower back pain Acute Alcoholic intoxication Acute Alcoholism Acute Back pain Acute Chronic Disease Mgmt/Transitional Care Acute Congestive heart failure Acute Dehydration Acute Dyspnea on exertion Acute Fracture dislocation of joint of right upper extremity Acute Generalized weakness Acute Humeral fracture Acute Hypoglycemia Acute Hyponatremia Acute Nocturnal cough Acute Urinary retention Acute
[2018-08-31] MEDS: LIDOCAINE 4%/MENTHOL 1% PATCH TD SCH (21:34)
[2018-09-01] MEDS: traMADol 50 MG TAB PO PRN ×2 (01:41→08:01)
[2018-09-01] MEDS: oxyCODONE IR 5 MG TAB PO PRN ×2 (05:10→19:30)
[2018-09-01] MEDS: DOXAZOSIN MESYLATE 4 MG TAB PO SCH (08:02)
[2018-09-01] MEDS: DILTIAZEM CD 180 MG CAP PO SCH (08:02)
[2018-09-01] MEDS: THIAMINE HCL 100 MG TAB PO SCH (08:02)
[2018-09-01] MEDS: ENOXAPARIN 40 MG/0.4 ML SYR SC SCH (08:02)
[2018-09-01] MEDS: PATCH REMOVAL 1 EA PATCH TD SCH (08:02)
[2018-09-01] MEDS ORDERED: LACTULOSE 20 GM/30 ML UDCUP PO PRN (10:32)
[2018-09-01] MEDS ORDERED: BISACODYL 10 MG SUPP PR PRN (10:32)
[2018-09-01] MEDS ORDERED: POLYETHYLENE GLYCOL 3350 17 GM PKT PO PRN (10:32)
[2018-09-01] MEDS: LIDOCAINE 4%/MENTHOL 1% PATCH TD SCH (20:00)
[2018-09-01] MEDS: SENNOSIDES/DOCUSATE SODIUM TAB PO SCH ×2 (20:00→20:04)
[2018-09-01] MEDS: MAGNESIUM HYDROXIDE 30 ML UDCUP PO SCH (20:04)
--- NOTE | 2018-09-01 20:53 | HOSPPROG ---
Hospitalist Progress Note Assessment/Plan: 78 yo male with h/o hypertension presented to ed after being found in his home with total disarray, urine and feces on floor and on pt. He complained of low back pain. He is admitted for failure to thrive and inability to care for himself. low back pain - suspect muscle strain, improving -robaxin prn, lido patch, stop toradol -check BMP in AM -PT/OT hypertension - mostly normotensive -prn hydralazine -home meds Hyponatremia -mild, recheck in AM alcohol abuse - CIWA hypothyroid -start low dose replacement dispo - unable to discharge today bc of SNF/weather, CM involved Objective: Vital Signs Temp Pulse Resp BP Pulse Ox 98.6 F 96 18 178/84 H 94 09/01/18 07:56 09/01/18 07:56 09/01/18 07:56 09/01/18 07:56 09/01/18 07:56 Laboratory Results 08/30/18 04:51 08/31/18 09/01/18 09/02/18 11:59 11:59 11:59 Intake Total 1829 300 Output Total 550 1200 Balance 1279 -900 PT 13.1 SEC (12.0-15.0) 08/30/18 04:51 INR 1.03 (0.83-1.16) 08/30/18 04:51 ICD10 Worksheet Patient Problems: Problems Problem Status Onset At maximum risk for fall Acute Failure to thrive in adult Acute History of compression fracture of spine Acute Inability to perform activities of daily living Acute Lower back pain Acute Alcoholic intoxication Acute Alcoholism Acute Back pain Acute Chronic Disease Mgmt/Transitional Care Acute Congestive heart failure Acute Dehydration Acute Dyspnea on exertion Acute Fracture dislocation of joint of right upper extremity Acute Generalized weakness Acute Humeral fracture Acute Hypoglycemia Acute Hyponatremia Acute Nocturnal cough Acute Urinary retention Acute
[2018-09-01] MEDS ORDERED: NAPROXEN SODIUM 220 MG TAB PO PRN (20:56)
[2018-09-02] MEDS: METHOCARBAMOL 500 MG TAB PO PRN (00:16)
[2018-09-02] MEDS: oxyCODONE IR 5 MG TAB PO PRN ×5 (00:16→15:45)
[2018-09-02] MEDS: traMADol 50 MG TAB PO PRN (02:02)
[2018-09-02] MEDS ORDERED: LEVOTHYROXINE 25 MCG TAB PO SCH (06:00)
[2018-09-02 08:04] VITALS: BP 177/96
[2018-09-02] MEDS: DILTIAZEM CD 180 MG CAP PO SCH (08:05)
[2018-09-02] MEDS: DOXAZOSIN MESYLATE 4 MG TAB PO SCH (08:05)
[2018-09-02] MEDS: SENNOSIDES/DOCUSATE SODIUM TAB PO SCH (08:05)
[2018-09-02] MEDS: THIAMINE HCL 100 MG TAB PO SCH (08:06)
[2018-09-02] MEDS: ENOXAPARIN 40 MG/0.4 ML SYR SC SCH (08:06)
[2018-09-02] MEDS: MAGNESIUM HYDROXIDE 30 ML UDCUP PO SCH (08:08)
[2018-09-02] MEDS ORDERED: MULTIVITAMINS 1 EACH TAB PO SCH (09:00)
[2018-09-02] MEDS: PATCH REMOVAL 1 EA PATCH TD SCH (10:26)
--- NOTE | 2018-09-02 12:39 | WOCRNPDOC ---
WOCRN Advanced Assessment Note - Skin Integrity Problem, Advanced Assess Coccyx Incont Assoc Dermatitis Dressing Type: Mepilex Border Integumentary Issue Intervention: Visualized Under Dressing Skin Integrity Problem Comment: Patient skin intact but peeling on right side. On the right sacrum appears to be a small scarred area roughly 1x1cm. No open areas, pressure injuries or tissue breakdown noted. Eliza GILLESPIE in room for care. Dimethicone to buttocks BID. Wound care will sign off.
--- NOTE | 2018-09-02 12:58 | PDIAF ---
- Diagnosis Code Status: Do Not Resuscitate - Medication Management Fur Clipper Antibiotics: n/a Discharge Medications: electronically signed and located in the Home Medication List. PICC Care - Routine: N/A - Orders Isolation Type: None Diet Recommendation: no restrictions on diet Diet Texture: Regular Texture Diet Weigh Patient: weekly Additional Instructions: activity per PT/OT evals/recommendations - Follow Up Care Current Providers and Referrals: Altagracia Lyn MD [Primary Care Provider] - 3 days of d/c SNF/Rehab
--- NOTE | 2018-09-02 13:40 | GDS ---
[f rep st] DISCHARGE SUMMARY SERVICE: [facility] hospitalist. CONSULTS: None. PROCEDURES: At admission, lumbar spine x-ray showing stable old compression deformities at L1 and L4 and a kyphotic deformity at L1. HISTORY AND PHYSICAL: Please see previously dictated note by Dr. Roland. ADMISSION DIAGNOSES: 1. Severe low back pain. 2. Alcoholism. 3. Failure to thrive. 4. Hypertension. 5. Chronic diastolic heart failure (status post transcatheter aortic valve replacement. 6. Interstitial lung disease. 7. Abdominal aortic aneurysm, status post repair. DISCHARGE DIAGNOSES: 1. Severe low back pain. 2. Alcoholism. 3. Failure to thrive. 4. Hypertension. 5. Chronic diastolic heart failure (status post transcatheter aortic valve replacement. 6. Interstitial lung disease. 7. Abdominal aortic aneurysm, status post repair. 8. Hypothyroidism, new diagnosis. 9. Hyponatremia, mild. HOSPITAL COURSE: The patient was brought to the hospital by EMS after calling because of severe back pain. By report, he was found in his own urine and feces in his apartment. His pain was not manage able in the emergency department and there was also concern about his welfare, so he was admitted to the hospital for further evaluation. He had a lumbar x-ray described as above. He was started on pa in medications and also alcohol withdrawal protocol. Physical Therapy, Occupational Therapy, and [facility] were all asked to assist in his care. He was given IV Toradol, which did greatly help w ith his pain, along with a patch and oral medications. On the day of discharge, he is still having p ain (which he normally treats with alcohol at home), but it is manageable with oral medications. [facility] Therapy recommended ongoing rehab and physical therapy, so he is going to be transferred to a [facility] nursing facility. He did not show any signs of acute alcohol withdrawal throughout his stay. He has an unremarkable CBC, except for an elevated MCV as expected, his sodium was mildly low and sta ble throughout his stay at 132 on admission, 132 at discharge. The rest of his CMP was normal. He h ad a urinalysis, which was normal, no indication of infection. He had a thyroid TSH that was slightl y elevated and he was started on the low-dose thyroid replacement. He has had labile blood pressures throughout his stay ranging from 120s to 180s over 60s to 90s. He is chronically on diltiazem and C ardura. This will need to be monitored as an outpatient and medications added as needed. His primar y care provider is Riki Adkins at [facility] and he should see her within a few days of discharge f rom the facility. Please see records for full medication list. /[id number]/MODL
--- NOTE | 2018-09-02 13:49 | ASMTLACE ---
[place] Length of stay for Answers: 4-6 days current admission Acuity / Level of Answers: Yes Care: Did the patient have an inpatient admission? Comorbidities - select Answers: Other Notes: AAA repair, right all that apply shoulder surgery, bowel resection, michelle, rheum ati c fever, lami # of Emergency department Answers: 1-2 visits in the last 6 months Social determinants Answers: History of substance abuse (ETOH, street drugs, prescription drugs, etc.) Lack of community resources and/or lack of social support (no pcp, lives alone, transportation, sona d) Score: 16 Date Signed: 09/02/2018 01:47 PM Electronically Signed By:Yin Sanchez RN
--- NOTE | 2018-09-02 13:56 | ASMTDCNOTE ---
Case Management Discharge Discharge Order Complete? Answers: Yes Patient to Obtain Answers: Other Notes: [employer] Medications Transportation Arranged Answers: Other Notes: [facility] will Pick (Date 09/02/2018 03:30 AM & Time) Faxed Final Orders Answers: Yes Agency/Facility Transfer Answers: Yes Report Printed & Faxed to Receiving Agency Discharge Comments Notes: D/yao ALONSO, final orders faxed. Bryson sarah florentin, RN to call report. Date Signed: 09/02/2018 01:55 PM Electronically Signed By:Yin Sanchez RN
--- NOTE | 2018-09-02 16:10 | ASDISCHSUM ---
Discharge Information Plan Status:SNF Medically Cleared to Leave:09/02/2018 Discharge Date:09/02/2018 04:01 PM CM D/C Disposition: ADT D/C Disposition:Shelter Facility Projected Discharge Date:09/02/2018 11:00 AM Transportation at D/C: Discharge Delay Reason: Follow-Up Date:09/02/2018 11:00 AM Discharge Slot: Final Diagnosis: Placement Information Referral Type:*Senior Care/SNF Referral ID:[id number] Provider Name:JAE Hendricks Address 1:[address] Address 2: Fax Number: [facility] Selection Factors: State:[place] Patient Contact Information Contact Name:WILLI Relationship:Friend Address: City: [facility] Phone: [facility]/Zip Code: Email: Financial Information Financial Class:Medicare Primary Plan Desc:MEDICARE INPATIENT Primary Plan Number:[id number] Secondary Plan Desc:[place] Secondary Plan Number:[id number] Assessment Information LACE LACE Length of stay for Answers: 4-6 days current admission Acuity / Level of Answers: Yes Care: Did the patient have an inpatient admission? Comorbidities - select Answers: Other Notes: AAA repair, right all that apply shoulder surgery, bowel resection, michelle, rheum ati c fever, lami # of Emergency department Answers: 1-2 visits in the last 6 months Social determinants Answers: History of substance abuse (ETOH, street drugs, prescription drugs, etc.) Lack of community resources and/or lack of social support (no pcp, lives alone, transportation, sona d) Score: 16 Date Signed: 09/02/2018 01:47 PM Electronically Signed By:Yin Sanchez RN [facility] Progress Note CM Note CM Note Notes: Chart Review for Discharge Planning: Patient is 78 year old male who presented to [facility] ED via EMS, he called the Fire Department for Lower Back pain. EMS reported arriving to home in unsanitary/untidy conditions & covered in feces. Chart review shows history of failure to thrive and inability to care for himself, APS is aware of patient. Past medical history includes AAA surgical repair, hypertension, right shoulder surgery, bowel resection, cholecystectomy, rheumatic fever, lamiectomy. Patient lives alone and daily EtOH use. Patient under DNR status. Wound care to consult. CM to follow. D/C Plan: TBD Date Signed: 08/29/2018 06:00 PM Electronically Signed By:Maria Fernanda Saab [facility] CM Progress Note CM Note CM Note Notes: Late entry: Reviewed chart, spoke with JOSE MIGUEL Cason. Pt presented to the Emergency Department via EMS with back pain. History includes AAA repair, HTN, right shoulder surgery, bowel resection, michelle, rheumatic fever, laminectomy, ETOH abuse. Pt is single and lives alone in [address], subsidized housing. CM approached by EMS upon arrival with concerns regarding pt's living conditions. Per EMS and [facility], "there was poop and urine on the floor of the pt's home." The apartment was found to be very dirty, cluttered,and unsanitary - "in a state of disarray." EMS responders report the pt as being "malnourished, not eating and unable to get around the apartment well." It was also noted that the pt "was soaked in urine and had bed bugs." EMS reported the pt's approximately a year and a half ago. On arrival to ED, pt was moaning and yelling out in pain. Per JOSE MIGUEL Cason, the pt was unable to ambulate to the bathroom and was only able to assist with removing his depends by shifting his hips from side to side on the bed. Pt was found to have exoriated skin in the isael area secondary to poor hygiene. Met with pt to discuss his current living situation and needs. Pt complains of "wrenching his back about 8 days ago." The pt reports that he "has had a hard time keeping up with things since he hurt his back." He states he lives alone. 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 The pt was very appropriate and did not appear to have any cognitive deficits. Pt admitted for failure to thrive and back pain. Per history and conversation with patient, it appears that his living conditions are suboptimal. Pt admits to "not cleaning as frequently as he should." Pt states he has a friend Mark Verduzco "who checks in on him monthy and helps him with house cleaning." In regards to the feces and urine, pt states he "isn't surprised, he's had a hard time the past few days." Regarding his drinking, pt states that he "does not drink socially, only drinks in his own home to help him sleep." He says it's very controlled drinking and without it, he suffers from insomnia. Regarding the bed bugs, pt states he has been told he has lice and thrips. Pt encouraged to speak with his network support manager or contact at [facility] to have this investigated. CM also offered to contact his friend Mark for assistance cleaning the apartment. Pt agreedable to CM contacting Mark and his MDPOAs. Call placed to Mark. Per Mark, he visits the pt "once per month and does very light house cleaning." He reports "taking out the trash and touching up the bathroom." Mark says he "hasn't seen the apartment in about a month." He was due to visit tomorrow. He reports the "apartment is usually very dirty and is in need of a good cleaning." Mark says he "only does what John asks and allows." CM asked Mark if he could assist in cleaning the apartment prior to pt's discharge from the hospital - Mark stated he "didn't think so." Mark said he would call the pt tomorrow. Per prior CM notes, pt designated two MDPOA's in September of 2017. His friend Asia Wang who lives in [place], [place] is one and his friend Layo Morse who lives locally is the other. Call placed to Asia. Per Asia, she has known the pt "since the 1960's - they went to college together and dated briefly." She states she only visits once per year and doesn't know how it would look if she actually had to make medical decisions on the pt's behalf. Call placed to Layo, last number listed has been disconnected. Attempted to locate Layo's contact information online without success. Pt reports he "may have a different number at home." Per records, atleast two APS reports were filed in 2018. CM called [facility] APS , spoke with Vesna Loera. Report filed regarding unsanitary living conditions, as well as health and safety concerns. Call placed to [facility] PD at suggestion of [facility] APS. Spoke with Officer Sb, report filed - . Per Officer Sb, case to be forwarded to [facility] Child Development Consultant Charan Hernandez (who is in charge of at-risk senior cases). [facility] will work with the [facility] to further investigate concerns. Updates provided to pt, JOSE MIGUEL Cason, and Dr. Caba. Discharge plan remains unclear. CM spoke with pt about possiblity of going to a SNF for rehab. Pt agreeable. Pt states he has been to [facility] before and "will never go back." Pt agreeable to placement at [facility] or [facility]. CM will await MD/PT/OT destin and will continue to follow. Pt would benefit from additional referrals to Magdalena at [facility], HCBS assistance, Meals on Wheels and nonskilled caregiver support (which he may qualify for under his Medicaid benefits), if he should stay in his home. Discharge Plan: To be determined, likely SNF Rehab Date Signed: 08/29/2018 10:17 PM Electronically Signed By:Mary Cornell RN [facility] Progress Note CM Note CM Note Notes: Spoke with hospitalist regarding pt. Pt may need LTC as he has not done well in the home and has difficulty caring for himself and keeping his house sanitary. Per hospitalist pt agreeable to SNF and/or LTC. [facility]. [id number] and PASSR will need to be completed tomorrow. If pt returns home he may need HBCS to help with house cleaning. CM to notify [facility] tomorrow. Pt has history of ETOH abuse and lives in [facility] housing currently. CM to follow. D/C Plan: SNF to LTC Date Signed: 08/30/2018 04:42 PM Electronically Signed By:Leonela Orosco [facility] Progress Note CM Note CM Note Notes: Spoke with pt in the room who declines LTC at this time and prefers to discharge to home, however he is agreeable to PT/OT recommendations and willing to discharge to a short term rehab[facility] [employer] [facility] do on-site evaluation today. Pt unwilling to return to [facility] as he has been there before. [id number] filed with [facility] to initiate home based services as pt prefers to discharge from SNF to home. Katt at [facility] also contacted to provide support. Pt denies "a problem" with ETOH and does not want to give it up as it is the "only thing that helps him sleep at night" and he states he has tried melatonin and other things. Pt states he drinks 3 - 4 shots before bedtime only and never during the day. Pt denies hangovers. CM filed report with ROSALIE and upon pt's arrival to ED due to unsanitary conditions and bedbugs reported at pt's home. Pt accepted at [facility] and is agreeable. CM to follow. D/C Plan: [facility] with follow up from [facility] on HCBS when pt returns home. Date Signed: 08/31/2018 02:10 PM Electronically Signed By:Leonela Orosco [facility] Progress Note CM Note VERONICA Note Notes: ADDENDUM: VERONICA heard from Clarence at [facility] and pt is already current with HCBS and they have been trying to get in touch with pt and his friend Hernandez to renew their services without success. CM gave [facility] pt's friend Mark's contact which is in the chart. CM also suggested HCBS be increased as pt is having difficulties with his current level of care. [facility] will not do assessment for LTC at this time as pt has declined LTC at this time, but they will consider increasing HCBS when pt discharges from rehab. Pt accepted at [facility] and is agreeable. Date Signed: 08/31/2018 02:08 PM Electronically Signed By:Leonela Orosco Case Management Discharge Plan Note Case Management Discharge Discharge Order Complete? Answers: Yes Patient to Obtain Answers: Other Notes: [facility] Arranged Answers: Other Notes: [employer] [facility] will Pick (Date 09/02/2018 03:30 AM & Time) Faxed Final Orders Answers: Yes Agency/Facility Transfer Answers: Yes Report Printed & Faxed to Receiving Agency Discharge Comments Notes: D/yao ALONSO, final orders faxed. Bryson sarah notified, JOSE MIGUEL to call report. Date Signed: 09/02/2018 01:55 PM Electronically Signed By:Yin Sanchez RN Intervention Information Intervention Type:*IM-Signed Date of Service:09/02/2018 02:25 PM Patient Type:Inpatient Staff Member:Candy Cheng Hours: Discipline: Severity: Comment:
== END 2018-09-02 16:01 | DRG 552 ==
LOC: EDUNIT# → F3E 17:17
PROVIDERS: ADMIT Internal Medicine; ATTEND Family Medicine
DX: M54.9 Dorsalgia, unspecified (principal); R62.7 Adult failure to thrive; E03.9 Hypothyroidism, unspecified; E87.1 Hypo-osmolality and hyponatremia; I11.0 Hypertensive heart disease with heart failure; I50.32 Chronic diastolic (congestive) heart failure; F10.20 Alcohol dependence, uncomplicated; J84.9 Interstitial pulmonary disease, unspecified; Z95.2 Presence of prosthetic heart valve; Z87.891 Personal history of nicotine dependence; Z66 Do not resuscitate
CPT/HCPCS: 84481-90; 97116-GP; 97162-GP; 97165-GO; 97530-GO; J0360; J1170; J1650; J1885; J2060; J3411

== ENCOUNTER 2018-09-03 06:16 | Emergency (ER) | payer OTHER, MEDICAID ==
[2018-09-03] MEDS ORDERED: IBUPROFEN 600 MG TAB PO ONE (07:02)
[2018-09-03] MEDS ORDERED: LIDOCAINE 4%/MENTHOL 1% PATCH TD ONE (07:02)
[2018-09-03] MEDS ORDERED: ACETAMINOPHEN 500 MG TAB PO ONE (07:02)
[2018-09-03] MEDS ORDERED: METHOCARBAMOL 750 MG TAB PO ONE (07:03)
--- NOTE | 2018-09-03 07:04 | EDPHY ---
H & P Time Seen by Provider: 09/03/18 06:36 HPI/ROS: CHIEF COMPLAINT: Low back pain HISTORY OF PRESENT ILLNESS: Patient was admitted on August 29 for chronic severe low back pain. He was discharged yesterday and his at [facility] and tells me he called the ambulance today because he has not gotten any of his blood pressure or pain medications at [facility]. He tells me they "do not have them yet." He has some chronic intermittent urinary incontinence worse with severe pain which is unchanged today. Otherwise nothing is different. No fecal incontinence, no weakness or numbness in lower extremities. No fever or chills. Worse with movement. No new fall or injury. REVIEW OF SYSTEMS: Eye: no change in vision ENT: no sore throat Cardiac: no chest pain or syncope Pulmonary: no cough or SOB Abdomen: no vomiting, diarrhea, abdominal pain Musculoskeletal: HPI Skin: no rash Neuro: no headache Constitutional: no fever : HPI A comprehensive 10 point review of systems is otherwise negative aside from elements mentioned in the history of present illness. PAST MEDICAL HISTORY: Discharge summary dated 09/02/18 personally reviewed includes low back pain, alcoholism, hypertension, chronic diastolic heart failure status post transcatheter aortic valve replacement, interstitial lung disease, abdominal aortic aneurysm repair. Right shoulder surgery. Social history: Currently [facility] resident. General Appearance: Alert and conversant, cooperative. Eyes: No scleral icterus. ENT, Mouth: Normal mucous membranes. Respiratory: Normal respiratory effort, breath sounds equal, lungs are clear to auscultation. Cardiovascular: Regular rate and rhythm. Gastrointestinal: Abdomen is soft and non tender. No pulsatile mass. Neurological: Alert, face symmetric, normal motor and sensory in extremities. Toes downgoing bilaterally, no clonus, patellar reflexes 1+ symmetric. Skin: Warm and dry, no rashes. Musculoskeletal: No midline spinal tenderness. Psychiatric: Not agitated. Emergency Department course/MDM: Patient's medication list from the hospital and from [facility] was reviewed. He is given Robaxin acetaminophen ibuprofen and lidocaine patch in the emergency department. I do not have suspicion for high likelihood of a new or different diagnosis. 743: Patient got his medications, sitting up on the side of bed, he says he feels comfortable going back to [facility] at this time. Smoking Status: Former smoker Constitutional: Initial Vital Signs Temperature (C) 37.0 C 09/03/18 06:18 Heart Rate 102 H 09/03/18 06:18 Respiratory Rate 20 09/03/18 06:18 Blood Pressure 199/149 H 09/03/18 06:18 O2 Sat (%) 90 L 09/03/18 06:18 O2 Delivery Mode Room Air Allergies/Adverse Reactions: aspirin Allergy (Mild, Verified 09/03/18 06:17) grapefruit Allergy (Mild, Verified 09/03/18 06:17) Other-Enter Comments Sulfa (Sulfonamide Antibiotics) Allergy (Mild, Verified 09/03/18 06:17) Other-Enter Comments Beta-Blockers (Beta-Adrenergic Bloc Allergy (Verified 09/03/18 06:17) Other-Enter Comments Home Medications: Medication Instructions Recorded Diltiazem Cd [Cardizem ER Q24hr] DAILY 09/03/18 Doxazosin Mesylate [Cardura 4 MG DAILY 09/03/18 (*)] Enoxaparin [Lovenox 40 MG (*)] DAILY 09/03/18 LORazepam [Ativan] PRN 09/03/18 Magnesium Hydroxide [Milk of 30 ml PO 09/03/18 Magnesia] Methocarbamol [Robaxin 500 mg (*)] 1,000 mg PO QID 09/03/18 Medical Decision Making Differential Diagnosis: Differential considered including but not limited to compression fracture, aneurysm or dissection, renal colic, infectious such as epidural abscess, cauda equina syndrome or spinal cord injury. - Data Points Medications Given: Discontinued Medications Acetaminophen (Tylenol) 1,000 mg PO EDNOW ONE Stop: 09/03/18 07:03 Last Admin: 09/03/18 07:18 Dose: 1,000 mg Ibuprofen (Motrin) 600 mg PO EDNOW ONE Stop: 09/03/18 07:03 Last Admin: 09/03/18 07:19 Dose: 600 mg Methocarbamol (Robaxin) 750 mg PO EDNOW ONE Stop: 09/03/18 07:04 Last Admin: 09/03/18 07:20 Dose: 750 mg Miscellaneous Medication (Icy Hot Lidocaine/Menthol 4%/1% Patch) 1 patch TD EDNOW ONE Stop: 09/03/18 07:03 Last Admin: 09/03/18 07:17 Dose: 1 patch Departure - Departure Disposition: Home, Routine, Self-Care Clinical Impression: Lower back pain Qualifiers: Chronicity: chronic Back pain laterality: bilateral Sciatica presence: without sciatica Qualified Code(s): M54.5 - Low back pain Condition: Good Instructions: Back Pain (ED) Referrals: Altagracia Lyn MD [Primary Care Provider] - As per Instructions
[2018-09-03 08:14] VITALS: BP 183/119
[2018-09-03] MEDS ORDERED: PATCH REMOVAL 1 EA PATCH TD SCH (21:00)
== END 2018-09-03 09:02 | disposition home or self-care (01) ==
LOC: EDUNIT#
DX: M54.5 Low back pain (principal); G89.29 Other chronic pain; I11.0 Hypertensive heart disease with heart failure; I50.32 Chronic diastolic (congestive) heart failure; Z95.2 Presence of prosthetic heart valve

== ENCOUNTER 2018-09-08 07:21 | Emergency (ER) | payer OTHER, MEDICAID ==
--- NOTE | 2018-09-08 07:23 | EDPHY ---
H & P Time Seen by Provider: 09/08/18 07:23 HPI/ROS: CHIEF COMPLAINT: Constipation HISTORY OF PRESENT ILLNESS: Patient was seen by myself on September 03 for low back pain. He was admitted from August 29- for low back pain and failure to thrive and is currently at [facility]. He does take oxycodone and Robaxin for his back pain and presents feeling like he is "filling up with waste" and not able to have a bowel movement. Denies abdominal pain. Still has chronic back pain; he says it is always 10/10 and this is no different than usual. No testicular symptoms. REVIEW OF SYSTEMS: Eye: no change in vision ENT: no sore throat Cardiac: no chest pain or syncope Pulmonary: no cough or SOB Abdomen: No vomiting or abdominal pain Musculoskeletal: HPI Skin: Stable decubitus. Neuro: no headache, no weakness or numbness in legs Constitutional: no fever : Patient says he is having some trouble urinating. Denies incontinence. A comprehensive 10 point review of systems is otherwise negative aside from elements mentioned in the history of present illness. PAST MEDICAL HISTORY: Discharge summary dated 09/02/2018 personally reviewed includes low back pain, alcoholism, hypertension, chronic diastolic heart failure status post TAVR, interstitial lung disease, abdominal aortic aneurysm repair and right shoulder surgery. Social history: Resident of [facility] General Appearance: Alert and conversant, cooperative. Eyes: No scleral icterus. ENT, Mouth: Normal mucous membranes. Respiratory: Normal respiratory effort, breath sounds equal, lungs are clear to auscultation. Cardiovascular: Regular rate and rhythm. Gastrointestinal: Abdomen is soft and non tender. Rectal exam shows moderate stool in the vault, manually disimpacted by myself. Normal rectal tone. Neurological: Alert, face symmetric, normal motor and sensory in extremities. No clonus, toes downgoing bilaterally. Able to move around in the [facility]. Skin: Dressing on a decubitus wound on the buttock, does not have surrounding erythema warmth or tenderness. Musculoskeletal: No peripheral edema. Psychiatric: Not agitated. Emergency Department course/MDM: Patient presents with constipation, more likely due to narcotic use than cauda equina or bowel obstruction or other acute surgical abdominal process or aneurysm or vascular dissection. Bedside ultrasound shows some urine in the bladder but I think that acute urinary retention requiring Elizabeth catheterization unlikely. Blood pressure noted likely due to pain from his back which he says is 10/10 despite treatment at [facility]. He does not have currently signs or symptoms of acute hypertensive emergency. He is given his usual medications including Robaxin 750 and diltiazem 180 XR. Blood pressure slowly trending down during ED stay, likely due to back pain and having not taken his blood pressure medication this morning. Smoking Status: Former smoker Constitutional: Initial Vital Signs Temperature (C) 36.7 C 09/08/18 07:24 Heart Rate 88 09/08/18 07:24 Respiratory Rate 18 09/08/18 07:24 Blood Pressure 219/131 H 09/08/18 07:24 O2 Sat (%) 91 L 09/08/18 07:24 O2 Delivery Mode Room Air Allergies/Adverse Reactions: aspirin Allergy (Mild, Verified 09/03/18 06:17) grapefruit Allergy (Mild, Verified 09/03/18 06:17) Other-Enter Comments Sulfa (Sulfonamide Antibiotics) Allergy (Mild, Verified 09/03/18 06:17) Other-Enter Comments Beta-Blockers (Beta-Adrenergic Bloc Allergy (Verified 09/03/18 06:17) Other-Enter Comments Home Medications: Medication Instructions Recorded Diltiazem Cd [Cardizem ER Q24hr] DAILY 09/03/18 Doxazosin Mesylate [Cardura 4 MG DAILY 09/03/18 (*)] Enoxaparin [Lovenox 40 MG (*)] DAILY 09/03/18 LORazepam [Ativan] PRN 09/03/18 Magnesium Hydroxide [Milk of 30 ml PO 09/03/18 Magnesia] Methocarbamol [Robaxin 500 mg (*)] 1,000 mg PO QID 09/03/18 Medical Decision Making - Data Points Medications Given: Discontinued Medications Diltiazem HCl (Dilacor Xr) 180 mg PO EDNOW ONE Stop: 09/08/18 07:40 Last Admin: 09/08/18 08:22 Dose: Not Given Diltiazem HCl (Cardizem Er Q24hr) 180 mg PO EDNOW ONE Stop: 09/08/18 08:01 Last Admin: 09/08/18 08:05 Dose: 180 mg Methocarbamol (Robaxin) 750 mg PO EDNOW ONE Stop: 09/08/18 07:40 Last Admin: 09/08/18 08:05 Dose: 750 mg Departure - Departure Disposition: Home, Routine, Self-Care Clinical Impression: Constipation Qualifiers: Constipation type: drug induced constipation Qualified Code(s): K59.03 - Drug induced constipation Hypertension Qualifiers: Hypertension type: unspecified Qualified Code(s): I10 - Essential (primary) hypertension Condition: Good Instructions: Constipation (ED), Hypertension (ED) Referrals: Altagracia Lyn MD [Primary Care Provider] - As per Instructions
[2018-09-08] MEDS ORDERED: DILTIAZEM XR 240 MG CAP PO ONE (07:39)
[2018-09-08] MEDS ORDERED: METHOCARBAMOL 750 MG TAB PO ONE (07:39)
[2018-09-08] MEDS ORDERED: DILTIAZEM CD 180 MG CAP PO ONE (08:00)
[2018-09-08 10:46] VITALS: BP 197/116
== END 2018-09-08 10:47 | disposition home or self-care (01) ==
LOC: EDUNIT#
PROC: 4A0D7LZ Measurement of Urinary Volume, Via Natural or Artificial Opening (ICD-10-PCS; principal; 2018-09-08)
DX: K59.03 Drug induced constipation (principal); I10 Essential (primary) hypertension; R39.198 Other difficulties with micturition; Z79.891 Long term (current) use of opiate analgesic